=== PATIENT | male | born 1950 | race Caucasian/White ===

== ENCOUNTER 2023-05-26 14:25 | Emergency (ER) | payer MEDICARE, SELFPAY ==
[2023-05-26 14:28] VITALS: BP 160/89; PULSE 75; RESP 18; TEMP 36.3; O2SAT 100; BMI 27.7
--- NOTE | 2023-05-26 14:50 | EX.ED.GUMALE ---
HPI <SOIRIS Travis - Last Filed: 05/26/23 19:53> History of Present Illness Chief Complaint: Complaint Narrative Narrative: Patient presenting today due to dysuria that he has had since last Friday. He reports that him and his are currently traveling from [place] as they live there part of the year and here part of the year. He began having right-sided flank pain last Friday or Friday that resolved after 2 days. The dysuria has worsened over the week and he has been experiencing increased urinary frequency. He reports that 3 weeks ago he had a cystoscopy performed by his urologist in [place] due to urinary dribbling. He does have an enlarged prostate. He denies any fever, chills, abdominal pain, nausea, or vomiting. PFSH <OSIRIS Travis - Last Filed: 05/26/23 19:53> PFSH Home Medications phenazopyridine 200 mg tablet (Pyridium) 200 mg PO TID pain 6 doses #6 tabs 05/26/23 [Rx Last Taken Unknown] Allergy/AdvReac Type Severity Reaction Status Date / Time paregoric Allergy Swelling Verified 05/26/23 14:28 Social History Smoking Status: Never smoker ROS <OSIRIS Travis - Last Filed: 05/26/23 19:53> ROS ED Constitutional Constitutional ED: Denies chills or fever(s) Cardiovascular Cardiovascular: Denies chest pain Respiratory/Chest Respiratory/Chest: Denies cough or dyspnea Gastrointestinal Gastrointestinal: Denies abdominal pain, nausea or vomiting Genitourinary Genitourinary ED: Reports dysuria, urinary frequency and urinary urgency; Denies hematuria Musculoskeletal Musculoskeletal: Denies arthralgias or myalgias Integumentary Denies rash Neurologic Neurologic: Denies weakness EXAM <OSIRIS Travis - Last Filed: 05/26/23 19:53> Physical Exam Const Vital Signs: 05/26/23 14:28 05/26/23 17:23 Temperature 97.3 F L Temperature Source Temporal Pulse Rate 75 84 Respiratory Rate 18 Blood Pressure 160/89 H Blood Pressure Mean 112 Pulse Ox 100 96 Oxygen Delivery Method Room Air Positive well nourished, well developed and no apparent distress General Appearance ED: well developed HEENT Reports normocephalic and head/scalp atraumatic Mouth ED: Yes moist mucous membranes normal Eyes PERRL and EOMs intact bilaterally Neck full ROM and supple Chest Wall inspection of chest normal Resp normal respiratory effort and clear to auscultation bilaterally Cardio regular rate and regular rhythm GI soft to palpation, non-tender, non-distended and no masses Back/Spine normal ROM and normal to inspection Extremity normal to inspection and full ROM Neuro oriented x3, CN's II-XII intact bilaterally, moves all extremities, no focal motor deficits and no sensory deficits noted Sensorium / Orientation: awake and alert Psych mental status grossly normal and thought process normal Skin no rashes or lesions noted and no wounds <Dr. Meng Renner MD - Last Filed: 05/26/23 16:52> Physical Exam Const Vital Signs: 05/26/23 14:28 05/26/23 17:23 Temperature 97.3 F L Temperature Source Temporal Pulse Rate 75 84 Respiratory Rate 18 Blood Pressure 160/89 H Blood Pressure Mean 112 Pulse Ox 100 96 Oxygen Delivery Method Room Air MDM <OSIRIS Travis - Last Filed: 05/26/23 19:53> [facility] MDM Narrative Medical decision making narrative: Patient presenting with dysuria and increased urinary frequency that he has had for the past week. He reports that last Friday or Friday he began having right-sided flank pain that was intermittent and lasted about 2 days and resolved. He continued to have urinary symptoms without any hematuria. He does have a history of an enlarged prostate and is on medication for this but he is unsure what it is called. He follows with a urologist in [place] who performed a cystoscopy on him at the end of April. He is well-appearing and in no acute distress, he is nontoxic-appearing, vitals are unremarkable aside from elevated blood pressure. UA will be obtained to rule out UTI, he will be bladder scanned. UA is unremarkable, bladder scan only showed 71 cc. Olmedo catheter was placed and only a small amount of urine was drained, I do not think that he has urinary retention. He did mention that he has been experiencing bladder spasms. He will be given a referral for Dr. Owen and has been given a prescription for Pyridium. He will be discharged home in stable condition and is comfortable with plan. I have personally performed a face to face assessment of the patient and have reviewed the GRISEL Note. I performed a substantive portion of the visit including all aspects of the following. My ac findings include: History is 72-year-old male with symptoms of urinary frequency and dysuria with enlarged prostate. Recent cystoscopy done in [place]. Denies fever. He is able to urinate. Denies any hematuria. Exam is [well-appearing 70-year-old male vital signs stable afebrile. H EENT exam unremarkable. Neck nontender. Lungs clear. Heart regular rhythm. Abdomen soft nondistended normal bowel sounds. No peritoneal signs. Mild suprapubic tenderness. No mass. Right upper right lower quadrant unremarkable. Moving all 4 extremities. Nontender no edema. Neurologically is awake and alert with no focal motor deficits.] Medical Decision Making [72-year-old male with urinary frequency which may be from the large prostate. Bladder scan is only 71 cc which goes against urinary retention. UA is normal no signs of infection.] Other additions or changes: [None] Lab Data Attestation: I reviewed the patient's lab results. Labs: Laboratory Results - last 24 hr 05/26/23 14:57 Urine Color Yellow Urine Clarity Clear Urine pH 7.0 Ur Specific [place] 1.015 Urine Protein 15 H Urine Glucose (UA) Normal Urine Ketones Negative Urine Occult Blood Negative Urine Nitrite Negative Urine Bilirubin Negative Urine Urobilinogen 1 H Ur Leukocyte Esterase 25 H Urine RBC 0 SEEN Urine WBC 0-5 SEEN Ur Squamous Epith Cells 0 SEEN Urine Bacteria 0 SEEN Urine Mucus 0 SEEN <Dr. Meng Renner MD - Last Filed: 05/26/23 16:52> [facility] Narrative Medical decision making narrative: Patient presenting with dysuria and increased urinary frequency that he has had for the past week. He reports that last Friday or Friday he began having right-sided flank pain that was intermittent and lasted about 2 days and resolved. He continued to have urinary symptoms without any hematuria. He does have a history of an enlarged prostate and is on medication for this but he is unsure what it is called. He follows with a urologist in [place] who performed a cystoscopy on him at the end of April. He is well-appearing and in no acute distress, he is nontoxic-appearing, vitals are unremarkable aside from elevated blood pressure. UA will be obtained to rule out UTI, he will be bladder scanned. I have personally performed a face to face assessment of the patient and have reviewed the GRISEL Note. I performed a substantive portion of the visit including all aspects of the following. My ac findings include: History is 72-year-old male with symptoms of urinary frequency and dysuria with enlarged prostate. Recent cystoscopy done in [place]. Denies fever. He is able to urinate. Denies any hematuria. Exam is [well-appearing 70-year-old male vital signs stable afebrile. H EENT exam unremarkable. Neck nontender. Lungs clear. Heart regular rhythm. Abdomen soft nondistended normal bowel sounds. No peritoneal signs. Mild suprapubic tenderness. No mass. Right upper right lower quadrant unremarkable. Moving all 4 extremities. Nontender no edema. Neurologically is awake and alert with no focal motor deficits.] Medical Decision Making [72-year-old male with urinary frequency which may be from the large prostate. Bladder scan is only 71 cc which goes against urinary retention. UA is normal no signs of infection.] Other additions or changes: [None] Lab Data Labs: Laboratory Results - last 24 hr 05/26/23 14:57 Urine Color Yellow Urine Clarity Clear Urine pH 7.0 Ur Specific [place] 1.015 Urine Protein 15 H Urine Glucose (UA) Normal Urine Ketones Negative Urine Occult Blood Negative Urine Nitrite Negative Urine Bilirubin Negative Urine Urobilinogen 1 H Ur Leukocyte Esterase 25 H Urine RBC 0 SEEN Urine WBC 0-5 SEEN Ur Squamous Epith Cells 0 SEEN Urine Bacteria 0 SEEN Urine Mucus 0 SEEN Discharge Plan Triage Chief Complaint: Complaint ED Midlevel Provider: Fabiana Hampton ED Provider: Meng Renner Dx/Rx/DC Orders Clinical Impression: Urinary frequency, Dysuria, Bladder spasms Instructions: ED Dysuria, Uncertain Cause (Adult) Prescriptions: New phenazopyridine [Pyridium] 200 mg tablet 200 mg PO TID Qty: 6 0RF Primary Care Provider: Care Physician,No Primary Referrals: Nghia Owen MD [Med Staff - Active Staff] - 3-5 Days Care Physician,No Primary [Primary Care Provider] - Activity Restrictions/Additional Instructions: Please follow-up with the urologist and return for any worsening of your symptoms. Disposition Disposition: Home, Self Care Discharge Date/Time: 05/26/23 17:29
[2023-05-26 15:02] LABS: Bacteria 0 SEEN /hpf (None Seen); Mucous, Urine 0 SEEN /hpf (<or=2+); Red Blood Cells-Urine 0 SEEN /hpf (0-5); Squamous Epithelial Cells - UA 0 SEEN /hpf (0-5)
[2023-05-26 15:11] LABS: Color, Urine Yellow (Yellow); Glucose, Dipstick Normal (Normal); Ketone-Dipstick Negative (Negative); Leukocyte Esterase-Dipstick 25 /ul (Negative); Nitrite-Dipstick Negative (Negative); Occult Blood-Urine Negative /ul (Negative); Protein-Dipstick 15 mg/dl (Negative); Specific Gravity, Urine 1.015 (1.002-1.030); Urine Bilirubin Dipstick Negative (Negative); Urine Clarity Clear (Clear); Urine Urobilinogen 1 mg/dl (Normal)
[2023-05-26 15:17] LABS: White Blood Cells 0-5 SEEN /hpf (0-5)
[2023-05-26 17:23] VITALS: PULSE 84; O2SAT 96
== END 2023-05-26 17:29 | disposition home or self-care (01) ==
PROVIDERS: Physician Assistant; Emergency Provider Emergency Medicine; Visit Provider Emergency Medicine
DX: R30.0 Dysuria (principal); R35.0 Frequency of micturition; N32.89 Other specified disorders of bladder
CPT/HCPCS: 51702; 81001; 99282; A4216

== ENCOUNTER → 2023-05-27 | Outpatient (CLI) | payer MEDICARE, OTHER, SELFPAY | END | disposition home or self-care (01) | PROVIDERS: Referring Provider Urology; Visit Provider Urology | DX: R30.0 Dysuria (principal) | CPT/HCPCS: 87086 ==

== ENCOUNTER → 2023-10-28 | Outpatient (CLI) | payer MEDICARE, OTHER, SELFPAY ==
--- OUTSIDE RECORDS SUMMARY | 2023-10-28 08:21 | XMS RPT_ITS | CCD ---
Author Name Unknown Address [address] [place] [address] Organization [facility] Care Team Providers Care Supervisor Partial Denture Department Name Role Phone Lynne Crockett PA-C Unavailable [phone] Ga Millan Primary Care Provider Lor Hensley (Retired) Primary Care Provider Lor Hensley (Retired) Primary Care Provider [phone] Mindy Henriquez Unavailable Galindo Ott DO Primary Care Provider GALINDO OTT Primary Care Unavailable GALINDO OTT Attending Unavailable GALINDO OTT Primary Care Unavailable NYDIA TORRES Attending Unavailable GA MILLAN Primary Care Unavailable Allergies Allergy Classification Reported Allergen(s) Allergy Type Date of Onset Reaction(s) Facility (1 source) PERIGORIC drug allergy 04-23-2019 [facility] Work Phone: (1 source) Opium; Translations: [opium] Drug Allergy [facility] Medications Current Medications Medication Drug Class(es) Dates Sig (Normalized) Sig (Original) acetaminophen 325 mg oral tablet (1 source) Start: 08-04-2020 acetaminophen (TYLENOL) tablet 650 mg amLODIPine 5 mg / benazepril hydrochloride 10 mg oral capsule (4 sources) Dihydropyridine Calcium Channel Michi, Angiotensin Converting Enzyme Inhibitor Start: 04-20-2018 take 1 capsule by mouth once daily 1 capsule, Oral, DAILY, First dose on Fri08/04/20 at 1045 aspirin 81 mg delayed release oral tablet (7 sources) Platelet Aggregation Inhibitor, Nonsteroidal Anti-inflammatory Drug Start: 05-30-2023 aspirin 81 mg oral delayed release tablet Dose : 81 mg = 1 tab(s), Oral, Daily, 0 Refill(s) Start Date: 05/30/23 Status: Ordered Completed/Discontinued Medications Medication Drug Class(es) Dates Sig (Normalized) Sig (Original) linseed oil 1000 mg oral capsule (4 sources) Start: 04-23-2019 End: 10-06-2023 Flaxseed, Linseed, (Flax Seed Oil) 1000 MG capsule Linseed Oil FLAX SEED OIL 1000 MG CAPS Take one capsule once daily FLAXSEED (LINSEED) [id number] Maria De Jesus Cuevaers 04-23-2019 [facility] [phone] 04/23/2019 10/06/2023 Discontinued (Patient refused) Problems Active Problems Problem Classification Problem Date Documented Da te Episodic/Chronic Allergic reactions (3 sources) Allergy to bee venom; Translations: [Bee allergy status] Onset: 10-06-2023 10-06-2023 Episodic Coronary atherosclerosis and other heart disease (8 sources) Coronary atherosclerosis; Translations: [Coronary arteriosclerosis] Onset: 08-04-2020 08-04-2020 Chronic Coronary atherosclerosis and other heart disease (20 sources) History of placement of stent for coronary artery disease; Translations: [S/P coronary artery stent placement] Episodic Disorders of lipid metabolism (4 sources) Mixed hyperlipidemia; Translations: [Mixed hyperlipidemia] Onset: 08-15-2020 10-06-2023 Chronic Essential hypertension (6 sources) Essential hypertension; Translations: [Essential (primary) hypertension] Onset: 02-16-2018 02-16-2018 Chronic Osteoarthritis (2 sources) Osteoarthritis of right knee joint; Translations: [Unilateral primary osteoarthritis, right knee] Onset: 10-06-2023 10-06-2023 Chronic Other and unspecified benign neoplasm (4 sources) History of polyp of colon; Translations: [Personal history of colonic polyps] Onset: 02-16-2018 02-16-2018 Episodic Other and unspecified benign neoplasm (2 sources) Personal history of colonic polyps; Translations: [Personal history of colonic polyps] Onset: 06-20-2022 Episodic Other ear and sense organ disorders (2 sources) Bilateral hearing loss; Translations: [Unspecified hearing loss, bilateral] Onset: 10-06-2023 10-06-2023 Chronic Other ear and sense organ disorders (2 sources) Unspecified hearing loss, bilateral; Translations: [Unspecified hearing loss, bilateral] Onset: 10-06-2023 Chronic Other non-epithelial cancer of skin (1 source) Basal cell carcinoma of skin; Translations: [Basal cell carcinoma of skin, unspecified] Onset: 10-06-2023 10-06-2023 Episodic Other screening for suspected conditions (not mental disorders or infectious disease) (6 sources) Raised prostate specific antigen; Translations: [Elevated prostate specific antigen [PSA]] Onset: 02-16-2018 02-16-2018 Episodic Spondylosis; intervertebral disc disorders; other back problems (1 source) Degeneration of cervical intervertebral disc; Translations: [Other cervical disc degeneration, unspecified cervical region] Onset: 04-27-2019 04-27-2019 Chronic Past or Other Problems Problem Classification Problem Date Documented Da te Episodic/Chronic Immunizations and screening for infectious disease (2 sources) Encounter for immunization; Translations: [Encounter for immunization] Onset: 06-19-2023 Episodic Nutritional deficiencies (2 sources) Deficiency of other specified B group vitamins; Translations: [Deficiency of other specified B group vitamins] Onset: 06-19-2023 Episodic Other connective tissue disease (1 source) Bicipital tendinitis, left shoulder; Translations: [Bicipital tendinitis, left shoulder] Onset: 04-27-2019 04-27-2019 Episodic Other connective tissue disease (1 source) Pain in right hand; Translations: [Pain in right hand] Onset: 10-10-2021 Resolved: 10-06-2023 10-06-2023 Episodic Other connective tissue disease (2 sources) Pain in finger of left hand; Translations: [Pain in left finger(s)] Onset: 10-10-2021 Resolved: 10-06-2023 10-06-2023 Episodic Other connective tissue disease (2 sources) Triggering of digit; Translations: [Trigger finger, right ring finger] Onset: 10-10-2021 Resolved: 10-06-2023 10-06-2023 Episodic Other connective tissue disease (1 source) Pain in finger of right hand; Translations: [Pain in right finger(s)] Onset: 08-14-2022 Resolved: 10-06-2023 10-06-2023 Episodic Residual codes; unclassified (3 sources) Family history of cancer of colon; Translations: [Family history of malignant neoplasm of digestive organs] Onset: 02-16-2018 Resolved: 10-06-2023 02-16-2018 Episodic Unclassified (1 source) Problem Results Test Name Value Interpretation Reference Range Facil ity Vital Signs Date Time Vital Sign Value Performing Clinician Facility 10-06-2023 14:39-0500 Body height 170.2 cm Galindo Ott DO [facility] 10-06-2023 14:39-0500 Body mass index (BMI) [Ratio] 28.66 kg/m2 Galindo Ott DO [facility] 10-06-2023 14:39-0500 Body temperature 98.29 [degF] Galindo Ott DO [facility] 10-06-2023 14:39-0500 Body weight 83.01 kg Galindo Ott DO [facility] 10-06-2023 14:39-0500 Diastolic blood pressure 70 mm[Hg] Galindo Ott DO Work Phone: [employer] 10-06-2023 14:39-0500 Heart rate 76 /min Galindo Ott DO [facility] 10-06-2023 14:39-0500 SaO2% (BldA) [Mass fraction] 97 % Galindo Ott DO [facility] 10-06-2023 14:39-0500 Systolic blood pressure 132 mm[Hg] Galindo Ott DO Work Phone: [facility] [employer] 05-31-2023 08:23-0400 Heart rate 80 /min DR ISIDORO SHETH MD [facility] 05-31-2023 06:45-0400 Body temperature 97.52 [degF] DR ISIDORO SHETH MD [facility] 05-31-2023 06:45-0400 Diastolic Blood Pressure Non-Invasive [address] ISIDORO SHETH MD [facility] 05-31-2023 06:45-0400 Heart rate 66 /min DR ISIDORO SHETH MD [facility] 05-31-2023 06:45-0400 Reason For Taking VItal Signs DR ISIDORO SHETH MD [facility] 05-31-2023 06:45-0400 Respiratory rate 16 /min DR ISIDORO SHETH MD [facility] 05-31-2023 06:45-0400 Systolic Blood Pressure Non-Invasive [address] ISIDORO SHETH MD [facility] 05-31-2023 03:25-0400 Body temperature 97.52 [degF] DR ISIDORO SHETH MD [facility] 05-31-2023 03:25-0400 Diastolic Blood Pressure Non-Invasive [address] ISIDORO SHETH MD [facility] 05-31-2023 03:25-0400 Heart rate 56 /min DR ISIDORO SHETH MD [facility] 05-31-2023 03:25-0400 Reason For Taking VItal Signs DR ISIDORO SHETH MD [facility] 05-31-2023 03:25-0400 Respiratory rate 16 /min DR ISIDORO SHETH MD [facility] 05-31-2023 03:25-0400 Systolic Blood Pressure Non-Invasive [address] ISIDORO SHETH MD [facility] 05-30-2023 22:43-0400 Body temperature 98.42 [degF] DR ISIDORO SHETH MD [facility] 05-30-2023 22:43-0400 Diastolic Blood Pressure Non-Invasive [address] ISIDORO SHETH MD [facility] 05-30-2023 22:43-0400 Heart rate 61 /min DR ISIDORO SHETH MD [facility] 05-30-2023 22:43-0400 Reason For Taking VItal Signs DR ISIDORO SHETH MD [facility] 05-30-2023 22:43-0400 Respiratory rate 16 /min DR ISIDORO SHETH MD [facility] 05-30-2023 22:43-0400 Systolic Blood Pressure Non-Invasive [address] ISIDORO SHETH MD [facility] 05-30-2023 20:14-0400 Body height 172.[address] ISIDORO SHETH MD [facility] 05-30-2023 20:14-0400 Body weight 77.[address] ISIDORO SHETH MD [facility] 05-30-2023 20:14-0400 Body weight 25.88 kg/m2 DR ISIDORO SHETH MD [facility] 05-30-2023 16:20-0400 Body temperature 97.34 [degF] DR ISIDORO SHETH MD [facility] 05-30-2023 16:15-0400 Respiratory Rate - Anes 15 br/min DR ISIDORO SHETH MD [facility] 05-30-2023 16:10-0400 Respiratory Rate - Anes 14 br/min DR ISIDORO SHETH MD [facility] 05-30-2023 16:05-0400 Respiratory Rate - Anes 15 br/min DR ISIDORO SHETH MD [facility] 05-30-2023 12:53-0400 Body height 172.[address] ISIDORO SHETH MD [facility] 05-30-2023 12:53-0400 Body temperature 98.06 [degF] DR ISIDORO SHETH MD [facility] 05-30-2023 12:53-0400 Body weight 77.[address] ISIDORO SHETH MD [facility] 05-30-2023 12:53-0400 Heart rate 69 /min DR ISIDORO SHETH MD [facility] 10-31-2020 06:42-0500 Body weight 89.36 kg Card 2 [facility] 10-31-2020 06:42-0500 BP Diastolic 70 mm[Hg] Card 2 [facility] 10-31-2020 06:42-0500 BP Systolic 112 mm[Hg] Card 2 [facility] 10-31-2020 06:42-0500 Height 172.7 cm Card 2 [facility] 10-31-2020 06:42-0500 Pulse (Heart Rate) 70 /min Card 2 [facility] 10-03-2020 06:37-0500 Body weight 93.17 kg Card 2 [facility] 10-03-2020 06:37-0500 BP Diastolic 78 mm[Hg] Card 2 [facility] 10-03-2020 06:37-0500 BP Systolic 128 mm[Hg] Card 2 [facility] 10-03-2020 06:37-0500 Pulse (Heart Rate) 72 /min Card 2 [facility] 09-04-2020 08:13-0500 Body weight 96.62 kg [employer] [facility] 09-04-2020 08:13-0500 BP Diastolic 70 mm[Hg] [employer] [facility] 09-04-2020 08:13-0500 BP Systolic 122 mm[Hg] [employer] [facility] 09-04-2020 08:13-0500 Height 172.7 cm [employer] [facility] 09-04-2020 08:13-0500 Pulse (Heart Rate) 70 /min [employer] [facility] 09-04-2020 08:13-0500 Pulse Oximetry 96 % [employer] [facility] 08-04-2020 15:30-0500 BP Diastolic 98 mm[Hg] Nydia Torres [facility], [place] 08-04-2020 15:30-0500 BP Systolic 130 mm[Hg] Nydia Torres [facility] 08-04-2020 15:30-0500 Pulse (Heart Rate) 88 /min Nydia Kenney [facility] 08-04-2020 15:00-0500 Pulse Oximetry 96 % Nydia Kenney [facility], [place] 08-04-2020 15:00-0500 Respiratory Rate 16 /min [facility] [place] 08-04-2020 10:30-0500 Body Temperature 97.7 [degF] Nydia oTrres [facility], [place] 08-04-2020 08:28-0500 BMI (Body Mass Index) 32.25 kg/m2 Nydia Torres [facility] 08-04-2020 08:28-0500 Body weight 96.2 kg [facility] [place] 08-04-2020 08:28-0500 Height 172.7 cm Nydia Torres [place], [place] NEGATED: Highlighted [id number] 08:02-0400 BMI (Body Mass Index) 32.05 kg/m2 Chapin Dawkins OTC [facility] Work Phone: NEGATED: Highlighted [id number] 08:02-0400 Body weight 95.26 kg Chapin Dawkins OT-C [facility] Work Phone: NEGATED: Highlighted [id number] 08:02-0400 Body weight 95 kg Chapin Juancho GONZALEZC [facility] Work Phone: NEGATED: Highlighted [id number] 08:02-0400 BP Diastolic 81 mm[Hg] Chapin Juancho OT-[facility] Work Phone: NEGATED: Highlighted [id number] 08:02-0400 BP Systolic 129 mm[Hg] Chapin Juancho OT-C [facility] Work Phone: NEGATED: Highlighted [id number] 08:040 Height 172.72 cm Chapin Juancho OT-C [facility] Work Phone: NEGATED: Highlighted [id number] 08:040 Height 173 cm Chapin Juancho OT-C [facility] Work Phone: NEGATED: Highlighted [id number] Pulse (Heart Rate) 67 /min Chapin Juancho OT-C [facility] Work Phone: Encounters Encounter Date Encounter Type Care Provider Facility Start: 10-06-2023 End: 10-06-2023 ambulatory [facility] Start: 10-06-2023 End: 10-06-2023 Office outpatient visit 25 minutes Galindo Maria Tru DO Work Phone: [facility] Procedures Date Procedure Procedure Detail Performing Clinician Start: 07-16-2021 Lipid 1996 panel - S leanna or Plasma Galindo Tru FISHMAN Work Phone: Start: 09-04-2020 Adult depression scr eening assessment Card 2 Start: 08-09-2020 Basic metabolic pane l calcium total Peggy B Puliafico Work Phone: Start: 08-09-2020 Blood count complete automated Peggy B Puliafico Work Phone: Start: 08-04-2020 Ecg routine ecg w/le ast 12 lds w/i&r Anat Baker Work Phone: Start: 08-04-2020 CARDIAC CATH NURSING LOG 3m Scanning Start: 08-04-2020 Basic metabolic pane l calcium total Nikki Williamson Work Phone: Start: 08-04-2020 Blood count complete automated Nikki Williamson Work Phone: Start: 08-04-2020 Catheterization and angiography procedure details panel Nydia Wallerdarenmateus Work Phone: Start: 10-05-2019 Colonoscopy Galindo rodriguez DO Work Phone: Start: 04-27-2019 End: 04-27-2019 Arthrocentesis aspir&/inj major jt/bursa w/o us Lynne Crockett PA-C Work Phone: Start: 04-27-2019 End: 04-27-2019 Blood pressure within normal parameters - no follow-up required Lynne Crockett PA-C Work Phone: Start: 04-27-2019 End: 04-27-2019 BMI documented as above normal parameters - follow-up documented Lynne Crockett PA-C Work Phone: Start: 04-27-2019 End: 04-27-2019 Documentation of current medications Lynne Crockett PA-C Work Phone: Start: 04-27-2019 End: 04-27-2019 Injection - triamcinolone acetonide 10 mg Lynne Crockett PA-C Work Phone: Start: 04-27-2019 End: 04-27-2019 Pain assessment documented as positive - follow-up documented Lynne Crockett PA-C Work Phone: Start: 04-27-2019 End: 04-27-2019 Tobacco non-user Lynne Washington Work Phone: Arthroplasty of knee DR ISIDORO SHETH MD Plan of Treatment Date Care Activity Detail Author Start: 07-06-2032 DTaP/Tdap/Td Vaccines (2 - Td or Tdap) DTaP/Tdap/Td Vaccines (2 - Td or Tdap) [facility] Start: 10-05-2029 Screening for malignant neoplasm of colon [facility] Start: 07-16-2026 Lipid panel Lipid Panel [facility] Start: 05-18-2024 End: 05-18-2024 Patient encounter procedure 05/18/2024 3:30 PM EDT Office Visit [facility] [address] [place] [address] Galindo Ott, DO [address] [place] [address] [facility] Start: 11-18-2023 End: 11-18-2023 Patient encounter procedure 11/18/2023 1:45 PM EDT Office Visit [facility] [address] [place] [address] Nydia Torres MD [address] [place] [address] [id number] [facility] Start: 10-06-2023 End: 10-06-2024 CBC W Auto Differential panel - Blood CBC auto differential Lab Routine Mixed hyperlipidemia Expected: 10/06/2023 (Approximate), Expires: 10/06/2024 [facility] Work Phone: Immunizations Immunization Date Immunization Notes Care Provider Xena szymanski 06-19-2023 Influenza, Seasonal, Quadrivalent, Adjuvanted Galindo Richlla DO Work Phone: [facility] 07-06-2022 tetanus toxoid, redu mary diphtheria toxoid, and acellular pertussis vaccine, adsorbed Galindo Hilarioaurya DO Work Phone: [facility] 07-08-2021 Influenza, High-dose Seasonal, Quadrivalent, Preservative Free Galindo Hilariolla DO Work Phone: [facility] 09-05-2020 pneumococcal polysac charide vaccine, 23 valent Galindo Diaza DO Work Phone: [facility] 06-20-2020 Influenza, injectabl e, quadrivalent, preservative free Galindo Hilariolla DO Work Phone: [facility] 07-19-2019 Influenza, injectabl e, quadrivalent, preservative free Galindo Ott DO Work Phone: [facility] [employer] Payers Date Payer Category Payer Unknown [employer] [place] MEDICARE SUPPLEMENT [id number] 2022-Present [address] [place] [address] Supplement [id number] 2020 Unknown MMO MMO MEDICARE SUPPLEMENT [id number] 2020-Present Indemnity [id number] 2019 Unknown [id number] 2015 Medicare [id number] 2015 Medicare MEDICARE MEDICAR E A AND B [id number] 2015-Present [place] Medicare [id number] 2015 Medicare MEDICARE MEDICAR E PART A AND B [id number] 2015-Present [address] [place] [address] Medicare [id number] Social History Date Type Detail Facility Start: 04-27-2019 End: 04-27-2019 Assertion Unknown if ever smoked [facility] Work Phone: Start: 08-02-2020 End: 11-13-2022 Tobacco smoking status NHIS Former smoker [facility] [employer] End: 02-16-1983 History of tobacco use Current smoker [place], [place] End: 02-16-1983 History of tobacco use Cigarette Smoker [place] Start: 08-02-2020 End: 11-13-2022 Cigarettes smoked current (pack per day) - Reported [place] Start: 08-02-2020 End: 11-13-2022 Tobacco use and exposure Never used [place] Start: 08-02-2020 End: 10-06-2023 Alcohol intake Current drinker of alcohol (finding) [place] Start: 02-10-2019 History SDOH Alcohol Frequency 5 [place] Start: 02-10-2019 History SDOH Alcohol Std Drinks 1 [place] Start: 02-10-2019 History SDOH Social Connections Phone 2 [place] Start: 02-10-2019 History SDOH Social Connections Get Together 3 [place] Start: 02-10-2019 History SDOH Physica l Activity DPW 4 [place] Start: 02-16-2018 Alcohol Comment occasionally [facility] Seth [place], [place] Start: 1950 Sex Assigned At Not on file M [place], [place] Exposure to SARS-CoV-2 (event) Not sure [facility] Start: 05-30-2023 Tobacco smoking status Never smoked tobacco (finding) [facility] Start: 1950 Sex Assigned At Male A [facility] Start: 11-13-2022 Tobacco use panel [facility] Start: 06-27-2022 Gender identity Identifies as male gender (finding) [facility] NEGATED: Highlighted rowStart: 04-27-2019 End: 04-27-2019 Employment detail Employment detail [facility] Work Phone: Goals Date Patient Goal Desired Activity /State Functional Status Date Assessment Result Facility 05-31-2023 Functional Status Repositions self [facility] 05-31-2023 Functional Status Sequential Com pression Device bilateral knee high applied/on [facility] 05-31-2023 Functional Status [facility] 05-30-2023 Functional Status [facility] 05-30-2023 Functional Status Sensory Deficits None A [facility] 05-30-2023 Functional Status 100 [facility] 05-30-2023 Functional Status Awake, Resting [facility] 05-30-2023 [facility] Status Date Assessment Result Facility 05-31-2023 Mental Status Orientation Oriented x 4 [facility] 05-30-2023 [facility] 05-30-2023 Mental Status [facility] History of Present illness Narrative 10-06-2023 Galindo Ott, DO - 10/06/2023 2:30 PM EST Note Date & Type Note Facility 10-06-2023 History of Presen t illness Narrative Images from the original note were not included. [facility] [address] [place] [address] [address] [facility] [address] Visit type: Established Patient Reason for Visit: Follow-up (New to provider, med check) Assessment / Plan: Yunior was seen today for follow-up. 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) Comments: Stable, check labs soon continue Crestor and aspirin Mixed hyperlipidemia - CBC auto differential; Future - Comprehensive metabolic panel; Future - Lipid panel; Future - CBC auto differential - Comprehensive metabolic panel - Lipid panel Elevated PSA, less than 10 ng/ml Comments: Stable, check records History of colon polyps Comments: Stable, check records Bilateral hearing loss, unspecified hearing loss type Primary osteoarthritis of right knee Comments: Stable, Tylenol as needed 35 Minutes spent on reviewing pertinent history, patient interview, physical exam, discussion of diagnosis and treatment and work-up options. Subjective: Patient ID: Yunior Rushing is a 73 y.o. male. HPI non-smoker with history of coronary disease, hyperlipidemia and hypertension and colonic polyps presents for first-time evaluation by myself. Past medical, past surgical, family and social history reviewed and chart updated properly. Patient does spend extensive time in [place] where he is a second home. Apparently last year he had a colonoscopy that was unremarkable and no future studies are necessary. Also this past year he underwent a TURP for elevated PSA by [facility] urologist. Unsure of exact details but is back to routine follow-up exams. Overall he is felt well and has no new complaints Review of Systems no recent earache sore throat or cough. Non-smoker. No exertional chest pain or dyspnea. No use of nitro. Will see cardiology once a year. No history of CO or heart failure. No dysphagia or abdominal pain. No melena or blood. Bowels are regular. No constipation diarrhea. No change in nocturia or dysuria. No recent hematuria. History of bee sting allergies as well. Rare arthralgia of his knees and low back. History of lumbar fusion and right knee arthroplasty. No Known Allergies Current Outpatient Medications on File Prior to Visit Medication Sig Dispense Refill aspirin 81 MG EC tablet Take 81 mg by mouth in the morning. benazepril (Lotensin) 10 MG tablet 20 mg. EPINEPHrine (AUVI-Q) 0.15 mg/0.15 mL IJ solution auto-injector injection Inject 0.15 mL (0.15 mg) into the shoulder, thigh, or buttocks if needed for anaphylaxis. 2 each 0 famotidine (Pepcid) 20 MG tablet Take 20 mg by mouth in the morning and 20 mg before bedtime. metoprolol succinate XL (Toprol-XL) 50 MG 24 hr tablet Take 1 tablet (50 mg) by mouth daily. 90 tablet 3 nitroglycerin (Nitrostat) 0.4 MG SL tablet up to max of 3 total doses. If no relief after 1 dose, call 911. rosuvastatin (Crestor) 20 MG tablet Take 1 tablet (20 mg) by mouth Nightly. 90 tablet 3 tamsulosin (Flomax) 0.4 MG 24 hr capsule Take 1 capsule by mouth in the morning. [DISCONTINUED] Flaxseed, Linseed, (Flax Seed Oil) 1000 MG capsule Linseed Oil FLAX SEED OIL 1000 MG CAPS Take one capsule once daily FLAXSEED (LINSEED) [phone] Maria De Jesus April 04-23-2019 [facility] ([id number]) No current facility-administered medications on file prior to visit. 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) Essential hypertension History of colon polyps Elevated PSA, less than 10 ng/ml Basal cell carcinoma Osteoarthritis of right knee Bilateral hearing loss Bee sting allergy Social History Tobacco Use Smoking status: Former Packs/day: 1 Types: Cigarettes Quit date: 02/16/1983 Years since quittin.6 Smokeless tobacco: Never Substance Use Topics Alcohol use: Yes Alcohol/week: 1.0 standard drink of alcohol Past Surgical History: Procedure Laterality Date BUNIONECTOMY Left [place]ONOSCOPY 09/2019 [place] COLONOSCOPY 2017October 2017 COLONOSCOPY 2022 Apparently negative, no need for follow-up in future CORONARY STENT PLACEMENT Left 07/2020 Stent to Mid LAD LUMBAR FUSION 1981 PROSTATE BIOPSY 2017 three total- Dr. Sheth RHINOPLASTY 2011 TOTAL KNEE ARTHROPLASTY Right 2015 TRANSURETHRAL RESECTION OF PROSTATE 2022 Cher Sheth Family History Problem Relation Name Age of Onset High Blood Pressure Mother Stroke Mother 78 age 70 Cerebral aneurysm Father Coronary artery disease Father Cancer Father ? primary, mets to brain- late 70s Prostate cancer Brother Lai vs rectal CA No Known Problems Brother No Known Problems Brother Objective: BP 132/70 Pulse 76 Temp 36.8 C (98.3 F) (Temporal) Ht 5' 7 (1.702 m) Wt 183 lb (83 kg) SpO2 97% BMI 28.66 kg/m Physical Exam The physical exam is generally normal. Patient appears well, alert and oriented x 3, pleasant, cooperative. Vitals are as noted. No carotid bruits. Neck supple, no abnormal adenopathy, thyroid lesions or masses. Ears, nose and throat are normal without acute findings. Lungs are clear to auscultation. Heart is regular, without murmurs, gallops or ectopy. Abdomen is soft, non tender, without masses, hepatosplenomegaly, or bruits. Normal BS evident. Extremities are normal without edema. Peripheral pulses are fair. No worrisome skin lesions. Screening neurological exam is normal without focal deficits. documented in this encounter [facility] Discharge instructions 05-31-2023 Note Date & Type Note Facility 05-31-2023 Hospital Discharg e instructions Patient Education 05/31/2023 10:02:19 Transurethral Resection of the Prostate, Care After Transurethral Resection of the Prostate, Care After This sheet gives you information about how to care for yourself after your procedure. Your health care provider may also give you more specific instructions. If you have problems or questions, contact your health care provider. What can I expect after the procedure? After the procedure, it is common to have: Mild pain in your lower abdomen. Soreness or mild discomfort in your penis from having the catheter inserted during the procedure. A feeling of urgency when you need to urinate. A small amount of blood in your urine. You may notice some small blood clots in your urine. These are normal. Follow these instructions at home: Medicines Take djzt-yol-qzvkexu and prescription medicines only as told by your health care provider. If you were prescribed an antibiotic medicine, take it as told by your health care provider. Do not stop taking the antibiotic even if you start to feel better. Ask your health care provider if the medicine prescribed to you: ?Requires you to avoid driving or using heavy machinery. ?Can cause constipation. You may need to take actions to prevent or treat constipation, such as: ?Take yadx-kct-weyzkvr or prescription medicines. ?Eat foods that are high in fiber, such as fresh fruits and vegetables, whole grains, and beans. ?Limit foods that are high in fat and processed sugars, such as fried or sweet foods. Do not drive for 24 hours if you were given a sedative during your procedure. Activity Return to your normal activities as told by your health care provider. Ask your health care provider what activities are safe for you. Do not lift anything that is heavier than 10 lb (4.5 kg), or the limit that you are told, for 3 weeks after the procedure or until your health care provider says that it is safe. Avoid intense physical activity for as long as told by your health care provider. Avoid sitting for a long time without moving. Get up and move around one or more times every few hours. This helps to prevent blood clots. You may increase your physical activity gradually as you start to feel better. Lifestyle Do not drink alcohol for as long as told by your health care provider. This is especially important if you are taking prescription pain medicines. Do not engage in sexual activity until your health care provider says that you can do this. General instructions Do not take baths, swim, or use a hot tub until your health care provider approves. Drink enough fluid to keep your urine pale yellow. Urinate as soon as you feel the need to. Do not try to hold your urine for long periods of time. If your health care provider approves, you may take a stool softener for 2 3 weeks to prevent you from straining to have a bowel movement. Wear compression stockings as told by your health care provider. These stockings help to prevent blood clots and reduce swelling in your legs. Keep all follow-up visits as told by your health care provider. This is important. Contact a health care provider if you have: Difficulty urinating. A fever. Pain that gets worse or does not improve with medicine. Blood in your urine that does not go away after 1 week of resting and drinking more fluids. Swelling in your penis or testicles. Get help right away if: You are unable to urinate. You are having more blood clots in your urine instead of fewer. You have: ?Large blood clots. ?A lot of blood in your urine. ?Pain in your back or lower abdomen. ?Pain or swelling in your legs. ?Chills and you are shaking. ?Difficulty breathing or shortness of breath. Summary After the procedure, it is common to have a small amount of blood in your urine. Avoid heavy lifting and intense physical activity for as long as told by your health care provider. Urinate as soon as you feel the need to. Do not try to hold your urine for long periods of time. Keep all follow-up visits as told by your health care provider. This is important. This information is not intended to replace advice given to you by your health care provider. Make sure you discuss any questions you have with your health care provider. Document Released: 08/25/2006 Document Revised: 12/15/2019 Document Reviewed: 05/26/2019 [employer] Patient Education 2020 [employer]. Follow Up Care 05/29/2023 15:19:24 With:ISIDORO SHETH MD, [facility] Address: [address] [place] [phone] When: Unknown [facility] Nurse Discharge summary 05-31-2023 Note Date & Type Note Facility 05-31-2023 Nurse Discharge summary discharge instructions reviewed with pt and , questions answered and verbalized understanding pt discharged via to home with family [facility] Clinical Note 05-31-2023 Note Date & Type Note Facility 05-31-2023 Note Discharge Instructions Thank you for allowing [facility] to assist you with your healthcare needs. The following is important discharge information regarding your hospital visit. What to do next Follow Up Appointments Follow Up with ISIDORO SHETH MD, [facility] When Where: [address] [place] [phone] The Following Activity and Diet Have Been Ordered for You No qualifying data available. No qualifying data available. The Following Equipment Has Been Ordered for You No qualifying data available. The Following Treatments Have Been Ordered for You Discharge Labs No qualifying data available. Discharge Radiology No qualifying data available. Other Therapies No qualifying data available. Post Acute Orders No qualifying data available. Someone Will Contact You Regarding These Home Health Referrals No home referrals have been ordered for you. No one will call you. Allergies opium (Swelling) Medications Please ask your primary doctor or pharmacist before taking any other medication not listed, including over the counter drugs, herbal medications, vitamins and or supplements as they may interact with your home medications. What How Much When Instructions Last Dose New atorvastatin New ciprofloxacin (Cipro 500 mg oral tablet) 1 tab(s) by mouth Every 12 hours Duration: 7 Days Pickup at [facility]/pharmacy #[id number] Changed aspirin (aspirin 81 mg oral delayed release tablet) 1 tab(s) by mouth Every day 9a Changed aspirin (aspirin 81 mg oral delayed release tablet) 1 tab(s) by mouth Every day Changed benazepril (benazepril 10 mg oral tablet) 1 tab(s) by mouth Every day 9a Changed benazepril (benazepril 10 mg oral tablet) 1 tab(s) by mouth Every day Changed famotidine (famotidine 20 mg oral tablet) 1 tab(s) by mouth Two (2) times a day 9a Changed famotidine (famotidine 20 mg oral tablet) 1 tab(s) by mouth Two (2) times a day Changed metoprolol (metoprolol succinate 50 mg oral TABLET extended release) 1 tab(s) by mouth Once a day 9a Changed metoprolol (metoprolol succinate 50 mg oral TABLET extended release) 1 tab(s) by mouth Once a day Changed tamsulosin (tamsulosin 0.4 mg oral capsule) TAKE 1 CAPSULE BY MOUTH EVERY DAY FOR BPH 9a Unchanged rosuvastatin (rosuvastatin 20 mg oral tablet) 1 tab(s) by mouth Every day Pharmacy Information [facility]/pharmacy #[id number]: [address], [place] [phone] What How Much When Comments Stop Taking dutasteride (dutasteride 0.5 mg oral capsule) 1 cap by mouth Every day Please take this list to your next doctor s visit. Bring all medications you take, including over the counter medications, herbals and other supplements with you to your doctor s visit. Patients and families are reminded to discard old lists and to update any records with all medication providers or retail pharmacies. Education Materials Transurethral Resection of the Prostate, Care After This sheet gives you information about how to care for yourself after your procedure. Your health care provider may also give you more specific instructions. If you have problems or questions, contact your health care provider. What can I expect after the procedure? After the procedure, it is common to have: Mild pain in your lower abdomen. Soreness or mild discomfort in your penis from having the catheter inserted during the procedure. A feeling of urgency when you need to urinate. A small amount of blood in your urine. You may notice some small blood clots in your urine. These are normal. Follow these instructions at home: Medicines Take ysbv-krt-hffpbqj and prescription medicines only as told by your health care provider. If you were prescribed an antibiotic medicine, take it as told by your health care provider. Do not stop taking the antibiotic even if you start to feel better. Ask your health care provider if the medicine prescribed to you: ? Requires you to avoid driving or using heavy machinery. ? Can cause constipation. You may need to take actions to prevent or treat constipation, such as: ? Take bksa-cyc-pczxtvp or prescription medicines. ? Eat foods that are high in fiber, such as fresh fruits and vegetables, whole grains, and beans. ? Limit foods that are high in fat and processed sugars, such as fried or sweet foods. Do not drive for 24 hours if you were given a sedative during your procedure. Activity Return to your normal activities as told by your health care provider. Ask your health care provider what activities are safe for you. Do not lift anything that is heavier than 10 lb (4.5 kg), or the limit that you are told, for 3 weeks after the procedure or until your health care provider says that it is safe. Avoid intense physical activity for as long as told by your health care provider. Avoid sitting for a long time without moving. Get up and move around one or more times every few hours. This helps to prevent blood clots. You may increase your physical activity gradually as you start to feel better. Lifestyle Do not drink alcohol for as long as told by your health care provider. This is especially important if you are taking prescription pain medicines. Do not engage in sexual activity until your health care provider says that you can do this. General instructions Do not take baths, swim, or use a hot tub until your health care provider approves. Drink enough fluid to keep your urine pale yellow. Urinate as soon as you feel the need to. Do not try to hold your urine for long periods of time. If your health care provider approves, you may take a stool softener for 2 3 weeks to prevent you from straining to have a bowel movement. Wear compression stockings as told by your health care provider. These stockings help to prevent blood clots and reduce swelling in your legs. Keep all follow-up visits as told by your health care provider. This is important. Contact a health care provider if you have: Difficulty urinating. A fever. Pain that gets worse or does not improve with medicine. Blood in your urine that does not go away after 1 week of resting and drinking more fluids. Swelling in your penis or testicles. Get help right away if: You are unable to urinate. You are having more blood clots in your urine instead of fewer. You have: ? Large blood clots. ? A lot of blood in your urine. ? Pain in your back or lower abdomen. ? Pain or swelling in your legs. ? Chills and you are shaking. ? Difficulty breathing or shortness of breath. Summary After the procedure, it is common to have a small amount of blood in your urine. Avoid heavy lifting and intense physical activity for as long as told by your health care provider. Urinate as soon as you feel the need to. Do not try to hold your urine for long periods of time. Keep all follow-up visits as told by your health care provider. This is important. This information is not intended to replace advice given to you by your health care provider. Make sure you discuss any questions you have with your health care provider. Document Released: 08/25/2006 Document Revised: 12/15/2019 Document Reviewed: 05/26/2019 Elsevier Patient Education 2020 [employer] Additional Information VACCINATE! IT SAVES LIVES! Members of the community who have not yet received the COVID-19 vaccine and would like to receive it can visit one of [facility] vaccine clinics. There are many vaccine clinic locations within the [facility]. For locations and available times, please visit [email or web address] It is important to note that some COVID mobile vaccine clinics are held outdoors and may be canceled in rainy or stormy conditions. To learn more about pediatric vaccinations (ages 5-11), we invite you to visit the [employer]s webpage. [email or web address] -[email or web address] To learn more about the COVID-19 vaccine, we invite you to visit the CDC website for a list of frequently asked questions.https://www.cdc.gov/coronavi flor/2019-ncov/vaccines/faq.html [email or web address] Patient Portal Access Instructions: Stay connected with your healthcare team and access your personal medical information anytime with the [email or web address] Patient Portal. Please follow the directions below to create your [email or web address] account: 1.Access the email account you provided upon registration to the hospital/physician office.2.Look for an invitation email from [facility].3.Open the email and access the invitation link: Accept Invitation to [email or web address].4.Fill in the required em to create your account. To access your account, visit [email or web address]. Click the blue button labeled Access Patient Portal and then log in with the username and password that you created in the steps above. You will be able to view your test results, lab results, a summary of your visits, upcoming appointments and more. There is also a convenient messaging option where you can send secure messages to your provider. In addition, you will have the ability to download any documents or summaries to your computer and/or send the information securely to a physician. Remember that your healthcare information is confidential, so carefully consider who you will allow to register on the [facility] Patient Portal for access to your information. You can also access the [facility] Patient Portal on the [facility] tere. Simply click on Patient Portal and then log into your account. If you would like to receive a full copy of your medical records, please contact the [facility] Medical Records Department by calling [phone], Friday through Friday between 8 a.m. and 4:30 p.m. HOW TO SAFELY DISPOSE OF PRESCRIPTION MEDICATIONS Please use one of the following methods to safely dispose of your unused medications. 1.Use a drug disposal kit: the drug disposal pouch allows you to safely discard your old and unused drugs. Ask your nurse to give you one when you are discharged.2.Visit a local take-back location: Many local pharmacies and police departments have programs that collect old and unwanted prescription drugs. Call your local pharmacy or go to http://Pharmacopeia/8X0Ra7g to find one close to you.3.Make use of household items: Use cat litter or old coffee grounds to dispose medications if other options are not available. Mix your drugs with these household products, seal them in an airtight container and throw it into the garbage. Call [facility]: [phone] to be sure your drugs can be disposed of in this way. Some medicines may require a different approach.4.Never flush your medications down the toilet. IF YOU HAVE BEEN PRESCRIBED AN OPIOID FOR PAIN If you have been prescribed an opioid (such as hydrocodone, oxycodone or morphine), it is critical to understand the possible side effects and risks of opioid pain medications. Even when taken as directed, opioids can have several side effects including: Tolerance, meaning you might need to take more of a medication for the same pain relief. Nausea, vomiting and/or constipation. Sleepiness, dizziness, dry mouth, confusion, depression or itching. Physical dependence, meaning you have withdrawal symptoms when a medication is stopped, can develop within a few days. KNOW YOUR RESPONSIBILITIES It is important to know exactly how much and how often to take the opioid pain medications you are prescribed. Never take opioids in higher amounts or more often than prescribed. Do not combine opioids with alcohol or other drugs that cause drowsiness, such as benzodiazepines, also known as benzos, including diazepam and alprazolam, muscle relaxants or sleep aids. Never sell or share prescription opioids. This is illegal. Store opioids in a secure place and out of reach of others (including children, family, friends and visitors). The last page of this document has been signed and retained as a CHART COPY. Signatures Patient Education Materials Transurethral Resection of the Prostate, Care After Medication Leaflets My discharge plan and instructions have been reviewed and explained to me and I,YUNIOR RUSHING understand my current condition and have read and understand these discharge instructions. I have received a written copy of the plan/instructions. If I have questions, I am aware that I should contact my doctor. 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 Objective Vitals and Measurements T: 36.4 C (Oral) TMIN: 36.3 C (Temporal Artery) TMAX: 36.9 C (Oral) HR: 66(Monitored) RR: 16 BP: 124/61 SpO2: 92% HT: 172.7 cm WT: 77.2 kg BMI: 25.88 Intake and Output 7AM Yesterday to 7AM Today Intake and Output (Last 24 hours) Intake Administration Information 1010.00 Output Urinary Catheter Output: 14036.00 Total Summary Total Intake 1010.00 Total Output 71373.00 Fluid Balance -88409.00 Physical Exam Weight Dosing Weight: 77.2 kg (05/30/23) Dosing Weight: 77.2 kg (05/30/23) Medications Medications (17) Active Scheduled: (7) aspirin 81 mg EC 81 mg 1 tab(s), Oral, Daily atorvastatin 40 mg tablet 40 mg 1 tab(s), Oral, qDay benazepril 10 mg tablet 10 mg 1 tab(s), Oral, Daily famotidine 20 mg tablet 20 mg 1 tab(s), Oral, BID famotidine 20 mg/2 mL vial 20 mg 2 mL, IV Push, q12h metoprolol succinate 50 mg ER tablet 50 mg 1 tab(s), Oral, qDay tamsulosin 0.4 mg Capsule 0.4 mg 1 cap(s), Oral, qDay Continuous: (4) Lactated Ringers 1,000 mL 1,000 mL, Intravenous, 20 mL/hr Lactated Ringers 1,000 mL 1,000 mL, Intravenous, 20 mL/hr NS (0.9% nacl) 1000 mL 1,000 mL, Intravenous, 100 mL/hr Sodium Chloride 0.9% IRR 3,000 mL 3,000 mL, Topical PRN: (6) acetaminophen 325 mg Tablet 650 mg 2 tab(s), Oral, q4h fentaNYL 50 mcg/mL (2mL) ampule 50 mcg 1 mL, IV Push, q5min hydromorphone 1 mg/mL (1mL) INJ 0.2 mg 0.2 mL, IV Push, q5min meperidine 25 mg/mL 1 mL 25 mg 1 mL, IV Bolus, q3h ondansetron 2 mg/ 1 mL 2 mL INJ 4 mg 2 mL, IV Push, q8h ondansetron 2 mg/ 1 mL 2 mL INJ 4 mg 2 mL, IV Push, AsDirected Lab Results 05/30 13:15 WBC: 5.1 Hgb: 15.2 Hct: 44.5 Platelet: 228 Neutrophil %: 63.4 Glucose Level: 110 Sodium Level: 141 Potassium Level: 4.0 BUN: 12 Creatinine Lvl (s): 0.91 EKG Electrocardiogram [AOH] (EKG [AOH]) - InProcess -- 05/30/23 12:42:00 EDT, ORDERED BY Mya BOWMAN CRNA Assessment/Plan Orders: acetaminophen, Start: 05/30/23 17:45:00 EDT, Dose = 650 mg, = 2 tab(s), Oral, q4h, PRN, Pain, scale 1-3, 0, 05/30/23 17:45:00 EDT aspirin, Start: 05/30/23 14:59:00 EDT, Dose = 81 mg, = 1 tab(s), Oral, Daily, 0, 05/30/23 14:59:00 EDT aspirin, Dose : 81 mg = 1 tab(s), Oral, Daily, 0 Refill(s) atorvastatin, Start: 05/30/23 22:00:00 EDT, Dose = 40 mg, = 1 tab(s), Oral, qDay, 0, 05/30/23 14:59:00 EDT atorvastatin, 0 Refill(s) benazepril, Dose : 10 mg = 1 tab(s), Oral, Daily, 0 Refill(s) benazepril, Start: 05/30/23 14:59:00 EDT, Dose = 10 mg, = 1 tab(s), Oral, Daily, 0, 05/30/23 14:59:00 EDT ciprofloxacin, Dose : 500 mg = 1 tab(s), Oral, q12h, X 7 day(s), # 14 tab(s), 0 Refill(s), 06/06/23 15:00:00 EDT, Pharmacy: [facility]/pharmacy #[id number], 172.7, cm, 05/30/23 13:09:00 EDT, Height, 77.2, kg, 05/30/23 13:09:00 EDT, Dosing Weight famotidine, Start: 05/30/23 21:00:00 EDT, Dose = 20 mg, = 2 mL, IV Push, q12h, 0, 05/30/23 17:45:00 EDT famotidine, Start: 05/30/23 14:59:00 EDT, Dose = 20 mg, = 1 tab(s), Oral, BID, 0, 05/30/23 14:59:00 EDT famotidine, Dose : 20 mg = 1 tab(s), Oral, BID, 0 Refill(s) Lactated Ringers Infusion 1,000 mL, Start: 05/30/23 17:45:00 EDT, Rate: 20 mL/hr, 05/30/23 17:45:00 EDT metoprolol, Start: 05/30/23 14:59:00 EDT, Dose = 50 mg, = 1 tab(s), Oral, qDay, 0, 05/30/23 14:59:00 EDT metoprolol, Dose : 50 mg = 1 tab(s), Oral, qDay, 0 Refill(s) ondansetron, Start: 05/30/23 17:45:00 EDT, Dose = 4 mg, = 2 mL, IV Push, q8h, PRN, Nausea, 0, 05/30/23 17:45:00 EDT Sodium Chloride 0.9% intravenous solution 1000 mL, Start: 05/30/23 7:18:00 EDT, 18 hour(s), Stop date 05/31/23 19:17:00 EDT, Rate: 100 mL/hr sodium chloride 3,000 mL, Start: 05/30/23 17:45:00 EDT, Topical, for continuous Bladder irrigation, 3,000, 05/30/23 17:45:00 EDT tamsulosin, Start: 05/30/23 14:59:00 EDT, Dose = 0.4 mg, = 1 cap(s), Oral, qDay, 0, 05/30/23 14:59:00 EDT Ambulate Ambulate Assign to Observation status Code Status Diet Order Electrocardiogram [AOH] Incentive Spirometer IV Catheter Insertion/Care NPO Pathology Tissue Request Pulse Oximeter - Intermittent Sequential Compression Device Application Up to Chair Urinary Catheter Insertion/Care Vital Signs Digitally Signed by ISIDORO SHETH MD on 05/31/2023 08:16 AM [facility] Anesthesiology Consult note 05-30-2023 Note Date & Type Note Facility 05-30-2023 Anesthesiology Consult note Patient: YUNIOR RUSHING Age: 72 years Sex: Male : 1950 Associated Diagnoses: None Author: LEILA LILLY APRN-SPEECH THERAPY TEACHER Preoperative Information Time of last food or liquid consumption: 05/29/2023 23:59:00 Anesthesia history Patient's history: negative. Family's history: negative. Review of Systems Ear/Nose/Mouth/Throat: Negative except as documented in history of present illness. Respiratory: Negative except as documented in history of present illness. Cardiovascular: Negative except as documented in history of present illness. Gastrointestinal: Negative except as documented in history of present illness. Genitourinary: Negative except as documented in history of present illness. Endocrine: Negative except as documented in history of present illness. Musculoskeletal: Negative except as documented in history of present illness. Integumentary: Negative except as documented in history of present illness. Neurologic: Negative except as documented in history of present illness. Health Status Allergies: Allergic Reactions (Selected) Severity Not Documented Opium- Swelling., Allergies (1) ActiveReaction opiumSwelling Current medications: (Selected) Inpatient Medications Ordered NS 1000 mL: 100 mL/hr, Intravenous, Stop: 05/31/23 19:17:00 EDT aspirin 81 mg oral delayed release tablet: 81 mg, 1 tab(s), Oral, Daily benazepril: 10 mg, 1 tab(s), Oral, Daily famotidine: 20 mg, 1 tab(s), Oral, BID metoprolol succinate 50 mg oral TABLET extended release: 50 mg, 1 tab(s), Oral, qDay tamsulosin: 0.4 mg, 1 cap(s), Oral, qDay Incomplete atorvastatin: Prescriptions Prescribed Cipro 500 mg oral tablet: 500 mg, 1 tab(s), Oral, q12h, for 7 day(s), 14 tab(s), 0 Refill(s) Documented Medications Documented aspirin 81 mg oral delayed release tablet: 81 mg, 1 tab(s), Oral, Daily, 0 Refill(s) aspirin 81 mg oral delayed release tablet: 81 mg, 1 tab(s), Oral, Daily, 0 Refill(s) atorvastatin: 0 Refill(s) benazepril 10 mg oral tablet: 10 mg, 1 tab(s), Oral, Daily, 0 Refill(s) benazepril 10 mg oral tablet: 10 mg, 1 tab(s), Oral, Daily, 30 tab(s), 0 Refill(s) famotidine 20 mg oral tablet: 20 mg, 1 tab(s), Oral, BID, 0 Refill(s) famotidine 20 mg oral tablet: 20 mg, 1 tab(s), Oral, BID, 60 tab(s), 0 Refill(s) metoprolol succinate 50 mg oral TABLET extended release: 50 mg, 1 tab(s), Oral, qDay, 0 Refill(s) metoprolol succinate 50 mg oral TABLET extended release: 50 mg, 1 tab(s), Oral, qDay, 30 tab(s), 0 Refill(s) rosuvastatin 20 mg oral tablet: 20 mg, 1 tab(s), Oral, Daily, 0 Refill(s), Medications (6) Active Scheduled: (5) aspirin 81 mg EC 81 mg 1 tab(s), Oral, Daily benazepril 10 mg tablet 10 mg 1 tab(s), Oral, Daily famotidine 20 mg tablet 20 mg 1 tab(s), Oral, BID metoprolol succinate 50 mg ER tablet 50 mg 1 tab(s), Oral, qDay tamsulosin 0.4 mg Capsule 0.4 mg 1 cap(s), Oral, qDay Continuous: (1) NS (0.9% nacl) 1000 mL 1,000 mL, Intravenous, 100 mL/hr PRN: (0) Problem list: No problem items selected or recorded., Active Problems (2) Hyperlipidemia Hypertension Histories Past Medical History: No active or resolved past medical history items have been selected or recorded. Family History: No family history items have been selected or recorded. Procedure history: Stent placement ([id number]). Knee replacement ([id number]). Comments: 05/30/2023 12:51 Mai Garcia RN right Bunion ([id number]). Comments: 05/30/2023 12:51 Mai Garcia RN left Spinal fusion ([id number]). Comments: 05/30/2023 12:52 Mai Garcia RN bottom 3 levels Cataract ([id number]). Nose ([id number]). Comments: 05/30/2023 12:52 Mai Garcia RN deviated septum surgery Social History Social & Psychosocial Habits No Data Available . Physical Examination Vital Signs 05/30/2023 15:40 EDT Heart Rate Monitored 62 bpm bpm Respiratory Rate - Anes 18 br/min br/min Systolic Blood Pressure Non-Invasive 87 mmHg mmHg Diastolic Blood Pressure Non-Invasive 54 mmHg mmHg 05/30/2023 15:35 EDT Heart Rate Monitored 66 bpm bpm Respiratory Rate - Anes 12 br/min br/min Systolic Blood Pressure Non-Invasive 105 mmHg mmHg Diastolic Blood Pressure Non-Invasive 59 mmHg mmHg 05/30/2023 15:30 EDT Heart Rate Monitored 66 bpm bpm Respiratory Rate - Anes 14 br/min br/min Systolic Blood Pressure Non-Invasive 89 mmHg mmHg Diastolic Blood Pressure Non-Invasive 53 mmHg mmHg 05/30/2023 15:25 EDT Heart Rate Monitored 65 bpm bpm Respiratory Rate - Anes 16 br/min br/min Systolic Blood Pressure Non-Invasive 114 mmHg mmHg Diastolic Blood Pressure Non-Invasive 59 mmHg mmHg 05/30/2023 15:20 EDT Heart Rate Monitored 67 bpm bpm Respiratory Rate - Anes 11 br/min br/min Systolic Blood Pressure Non-Invasive 114 mmHg mmHg Diastolic Blood Pressure Non-Invasive 69 mmHg mmHg 05/30/2023 15:15 EDT Heart Rate Monitored 66 bpm bpm Respiratory Rate - Anes 19 br/min br/min Systolic Blood Pressure Non-Invasive 107 mmHg mmHg Diastolic Blood Pressure Non-Invasive 62 mmHg mmHg 05/30/2023 15:10 EDT Heart Rate Monitored 63 bpm bpm Respiratory Rate - Anes 0 br/min br/min Systolic Blood Pressure Non-Invasive 139 mmHg mmHg Diastolic Blood Pressure Non-Invasive 69 mmHg mmHg 05/30/2023 12:53 EDT Temperature Temporal Artery 36.7 DegC Apical Heart Rate 69 bpm Respiratory Rate 12 br/min LOW Systolic Blood Pressure Non-Invasive 123 mmHg Diastolic Blood Pressure Non-Invasive 70 mmHg Vital Signs(last 24 hrs) Last Charted Heart Rate [id number] bpm (MAY 30 15:40) Resp Rate L 12br/min (MAY 30 12:53) SBP87 mmHg (MAY 30 15:40) DBP54 mmHg (MAY 30 15:40) Measurements from flowsheet : Measurements 05/30/2023 12:53 EDT Height 172.7 cm Height in inches 68 inch(es) Admission Weight 77.2 kg Weight Lbs 169.8 lb [place] Body Weight 68.38 kg Admission Body Mass Index 25.88 m2 Pain assessment: Pain Assessment 05/30/2023 12:53 EDT Primary Pain Intensity 0 Pain Scale Type 0-10 Pain scale . General: Alert and oriented. Airway: Normal neck range of motion. Mallampati classification: II (soft palate, fauces, uvula visible). Head: Normocephalic. Dentition Evaluation: Intact, Own teeth. Neck: Full range of motion. Respiratory: Lungs are clear to auscultation. Cardiovascular: Normal rate. Heart Sounds: Normal. Gastrointestinal: Soft. Musculoskeletal Normal range of motion. Integumentary: Intact, Warm, Dry. Neurologic: Alert, Oriented. Review / Management Results review: Labs (Last four charted values) WBC 5.1(MAY 30) Hgb 15.2(MAY 30) Hct 44.5(MAY 30) Plt 228(MAY 30) Na 141(MAY 30) K 4.0(MAY 30) CO2 28(MAY 30) Cl 103(MAY 30) Cr 0.91(MAY 30) BUN 12(MAY 30) Glucose 110(MAY 30) Ca 9.2(MAY 30) , Lab results 05/30/2023 15:51 EDT SN - GCD - ASA Class 3 05/30/2023 15:41 EDT phenylephrine 100 mcg mcg 05/30/2023 15:40 EDT Heart Rate Monitored 62 bpm bpm Respiratory Rate - Anes 18 br/min br/min Systolic Blood Pressure Non-Invasive 87 mmHg mmHg Diastolic Blood Pressure Non-Invasive 54 mmHg mmHg Oxygen Saturation 98 % % 05/30/2023 15:35 EDT Heart Rate Monitored 66 bpm bpm Respiratory Rate - Anes 12 br/min br/min Systolic Blood Pressure Non-Invasive 105 mmHg mmHg Diastolic Blood Pressure Non-Invasive 59 mmHg mmHg Oxygen Saturation 98 % % 05/30/2023 15:31 EDT phenylephrine 100 mcg mcg 05/30/2023 15:30 EDT Heart Rate Monitored 66 bpm bpm Respiratory Rate - Anes 14 br/min br/min Systolic Blood Pressure Non-Invasive 89 mmHg mmHg Diastolic Blood Pressure Non-Invasive 53 mmHg mmHg Oxygen Saturation 97 % % 05/30/2023 15:25 EDT Heart Rate Monitored 65 bpm bpm Respiratory Rate - Anes 16 br/min br/min Systolic Blood Pressure Non-Invasive 114 mmHg mmHg Diastolic Blood Pressure Non-Invasive 59 mmHg mmHg Oxygen Saturation 97 % % AOH MAIN OR Preop & Phase II Record AOH MAIN OR Preop & Phase II Record 05/30/2023 15:21 EDT SN - Proc - Actual Procedure TRANSURETHERAL RESECTION OF PROSTATE WITH OLYMPUS 05/30/2023 15:21 EDT SN - SP - Prep Agents Betadine Scrub SN - SP - HR - Method N/A 05/30/2023 15:20 EDT Heart Rate Monitored 67 bpm bpm Respiratory Rate - Anes 11 br/min br/min Systolic Blood Pressure Non-Invasive 114 mmHg mmHg Diastolic Blood Pressure Non-Invasive 69 mmHg mmHg Oxygen Saturation 99 % % 05/30/2023 15:19 EDT SN - PP - Body Position Lithotomy Standard Intra-op 05/30/2023 15:17 EDT SN - CAt - Case Attendee SN - CAt - Case Attendee SN - CAt - Role Performed Scrub 1 05/30/2023 15:17 EDT SN - CTm - Surgery Start 05/30/2023 15:17 05/30/2023 15:17 EDT SN - CTm - Surgery Start Surgery Start 05/30/2023 15:15 EDT Heart Rate Monitored 66 bpm bpm Respiratory Rate - Anes 19 br/min br/min Systolic Blood Pressure Non-Invasive 107 mmHg mmHg Diastolic Blood Pressure Non-Invasive 62 mmHg mmHg Oxygen Saturation 100 % % dexAMETHasone 4 mg mg fentaNYL 50 mcg mcg ondansetron 4 mg mg 05/30/2023 15:11 EDT lidocaine 100 mg mg propofol 200 mg mg 05/30/2023 15:10 EDT Heart Rate Monitored 63 bpm bpm Respiratory Rate - Anes 0 br/min br/min Systolic Blood Pressure Non-Invasive 139 mmHg mmHg Diastolic Blood Pressure Non-Invasive 69 mmHg mmHg Oxygen Saturation 94 % % 05/30/2023 15:08 EDT SN - CTm - Anesthesia Start Time Anesthesia Start (Modified) 05/30/2023 15:01 EDT SN - GCD - Post-operative Diagnosis BENIGN PROSTATIC HYPERPLASIA WITH LOWER URINARY TRACT SYMPTOMS SN - GCD - Case Level Level 3 05/30/2023 15:00 EDT SN - PTCare - Anti-thromboembolism Linda Sequential Compression Device (SCD) 05/30/2023 15:00 EDT SN - Assess - LOC Alert, Awake SN - Assess - Orientation Oriented X 3 SN - Assess - Post-op Skin Integrity Intact/Dry 05/30/2023 15:00 EDT SN - CAt - Case Attendee SN - CAt - Case Attendee SN - CAt - Case Attendee SN - CAt - Case Attendee SN - CAt - Case Attendee SN - CAt - Case Attendee SN - CAt - Case Attendee SN - CAt - Case Attendee SN - CAt - Role Performed Primary Surgeon SN - CAt - Role Performed Blade Boner 1 SN - CAt - Role Performed Fun House Attendant 1 SN - CAt - Role Performed SPEECH THERAPY TEACHER 05/30/2023 13:18 EDT SN - Preop - CTm Pt in SDS Room 05/30/2023 12:35 SN - Preop - CTm Pt Ready for OR/Proced 05/30/2023 13:18 05/30/2023 13:16 EDT Sodium Chloride 0.9% Begin Bag 1,000 mL mL 05/30/2023 13:15 EDT WBC 5.1 10^3/mcL RBC 4.61 10^6/mcL Hgb 15.2 G/dL Hct 44.5 % MCV 96.6 fL HI MCH 32.9 pg HI MCHC 34.1 G/dL RDW 13.8 % Platelet 228 10^3/mcL MPV 7.7 fL Neutrophil % 63.4 % Lymphocyte % 19.1 % Monocyte % 14.7 % HI Eosinophil % 2.2 % Basophil % 0.6 % Neutrophil, Absolute 3.2 10^3/mcL Lymphocyte, Absolute 1.0 10^3/mcL Monocyte, Absolute 0.7 10^3/mcL Eosinophil, Absolute 0.1 10^3/mcL Basophil, Absolute 0.0 10^3/mcL Glucose Level 110 mg/dL Sodium Level 141 mmol/L Potassium Level 4.0 mmol/L Chloride 103 mmol/L CO2 28 mmol/L Electrolyte Balance 10.0 mEq/L BUN 12 mg/dL Creatinine Lvl (s) 0.91 mg/dL BUN/Creatinine Ratio 13 ratio Calcium Lvl 9.2 mg/dL GFR Non- 82 ml/min/1.73sqm NA GFR 99 ml/min/1.73sqm NA Creatinine Clearance Calc 70.97 mL/min 05/30/2023 13:14 EDT Antecubital Left 05/30/2023 20 gauge Peripheral IV Activity: Insert new site Peripheral IV Dressing Condition: Clean, Dry, Intact Peripheral IV Dressing Activity: Applied, Transparent dressing Peripheral IV Line Status/Patency: Flushes easily, Continuous infusion Peripheral IV Site Condition: No complications Peripheral IV Equipment: Extension set, PRN Adaptor 05/30/2023 13:02 EDT Electrocardiogram [AOH] - CV Completed (In Progress) 05/30/2023 12:53 EDT Height 172.7 cm Height in inches 68 inch(es) Admission Weight 77.2 kg Weight Lbs 169.8 lb [place] Body Weight 68.38 kg Admission Body Mass Index 25.88 m2 Temperature Temporal Artery 36.7 DegC Apical Heart Rate 69 bpm Respiratory Rate 12 br/min LOW Systolic Blood Pressure Non-Invasive 123 mmHg Diastolic Blood Pressure Non-Invasive 70 mmHg Primary Pain Intensity 0 Pain Scale Type 0-10 Pain scale Heart Rhythm Regular Respirations Unlabored Respiratory Pattern Regular All Lobes Breath Sounds Clear Oxygen Therapy Room air Oxygen Saturation 98 % Abdomen Description Non-distended Abdomen Palpation Non-Tender Bowel Sounds All Quadrants Present Urinary Elimination Voiding, no difficulties Skin Temperature Warm Skin Description [place], Dry Skin Integrity Intact IV Present Present Neurological Symptoms Patient denies Extremity Movement Equal Characteristics of Speech Clear Level of Consciousness Alert Strength All Extremities Strong Tone All Extremities Normal Sensation All Extremities Intact Affect/Behavior Appropriate Orientation Oriented x 4 Allergies Yes Anesthesia Extension Set Applied Yes Marriage Performer On Yes Consent Form Signed Yes Patient Dressed In Hospital gown CHG Preoperative Wash/Wipe Night before procedure, Day of procedure, Site specific wipe Preop Nasal Swab Povidone-Iodine CHG Skin Prep Completed for Eligible Surgery History & Physical Update On Chart Yes History & Physical On Chart Yes Obstructive Sleep Apnea Assess Completed Yes Belongings At Bedside Glasses, Pants, Shirt, Shoes, Socks, Undergarments Activity Status ADL Awake NPO Status Maintained Standard Safety ID band on, Allergy Band on, Call device within reach, Bed in low position, Wheels locked, Upper/Half-Length side-rails up, Safety level maintained Allergy Band on and Verified Yes Patient ID Band on and Verified Yes Implants Verified Yes Pacemaker/AICD Verified Yes Site Verified by Patient/Family Yes Anesthesia Consent Signed Yes Blood Consent Signed Yes Last Fluid Intake 05/29/2023 20:00 Last Food Intake 05/29/2023 20:00 Last Void 05/30/2023 12:57 05/30/2023 12:46 EDT Designated Person #1 We May Share MOISE Koehler [phone] Designated Person #1 Relationship Spouse Privacy Restrictions Requested None Status N/A Sensory Deficits None Sleep Apnea Snore No Sleep Apnea Tired No Sleep Apnea Obstruction No Sleep Apnea Pressure Yes Sleep Apnea BMI No Sleep Apnea Age Yes Sleep Apnea Neck No Sleep Apnea Gender Yes Sleep Apnea Score 3 Diagnosed With Sleep Apnea No Advanced Directives No - refuses information Infectious Disease Symptoms Patient states no symptoms Infectious Disease Recent Exposure No Alcohol and Drug Use No Employee of Institutional Living No Health Care Employee No History of Exposure to TB No History of Positive Chest X-Ray for TB No History of Positive TB Skin Test No Homeless No Known Immunosuppression No Recent Immigrant No Resident of Institutional Living No Bloody Sputum No Fatigue No Fever No Loss of Appetite No Night Sweats No Persistent Cough > 3 Weeks No Weight Loss No Barriers to Learning None evident Teaching Method Explanation, Printed materials Preferred Spoken Language Greek Preferred Written Language Greek Teaching Evaluation Verbalizes/Nonverbally indicates understanding Safety Brochure Information Reviewed Unable to complete [facility] Video Viewed No Information Given by Patient Patient's Current Physicians Patient's Current Physicians Discharge To, Anticipated Home independently Prev Test Positive/Diagnosis w/COVID-19 No Current Quarantine/Isolated any Illness No Any Contact with Sick Animals/Birds No Traveled Anywhere in Last 30 Days Yes Travel Where Within [facility] State(s) [place], [place], [place], [place], [place], [place] Lost Weight Unintentionally Recently No Eat Poorly Due to Decreased Appetite No Total MST Score 0 N/A Personal Devices, Patient Valuables Glasses, Hearing aid, left, Hearing aid, right Anesthesia/Transfusions Prior anesthesia Admission Note-Nursing Same Day Patient History . Assessment and Plan [place] [employer] (ASA) physical status classification: Class III. Anesthetic Preoperative Plan Premedication: intravenous. Anesthetic technique: General. Induction: intravenously. Maintenance airway: Laryngeal mask airway. Postoperative pain management: Per surgeon. Risks discussed: nausea, vomiting, headache, sore throat, dental injury, hypotension, allergic reaction, serious complications. Informed consent: signed by patient. Digitally Signed by LEILA LILLY on 05/30/2023 03:52 PM [facility] Clinical Note 05-30-2023 Note Date & Type Note Facility 05-30-2023 Note Sinus rhythm Borderline left axis deviation Abnormal R-wave progression, early transition Electronic Signature: MARIE JENKINS MD 05/31/2023 19:04:36 [facility] Evaluation + Plan note Note Date & Type Note Facility Evaluation + Plan note No data available for this section [facility] Evaluation note Note Date & Type Note Facility documented in this encounter [facility] Chief Complaint Chief Complaint Description Start Date left shoulder pain Preliminary chief co mplaint data, not yet signed by the author as of Instructions Instruction Description Start Date CompletedPatient advised to follow-up with Primary Care Physician for BMI management. Advance Directives No Advanced Directives Records FoundDocuments on File Type Date Recorded Patient [employer] Concierge Expl anation ACP-Advance Directive ACP-Power of Esl Professor Latest Code Status on File Code Status Date Activated Date Inactivated Comments Full Code 08/04/2020 10:30 AM Full Code 08/04/2020 8:14 AM 08/04/2020 10:30 AM Documents on File Type Date Recorded Patient [employer] Concierge Expl anation ACP-Advance Directive ACP-Power of Esl Professor Latest Code Status on File Code Status Date Activated Date Inactivated Comments Full Code 08/04/2020 10:30 AM 08/04/2020 6:06 PM Full Code 08/04/2020 8:14 AM 08/04/2020 10:30 AM Assessments Diagnosis 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 Family History There may be information available, but it has not been provided by the sender.No Family History Records FoundNo Family History Records FoundNo Family History Records Found No data available for this section No Family History Records Found History of Present Illness There may be information available, but it has not been provided by the sender. * Rock Castelan (Ex Phys) - 09/06/2020 6:45 AM EST Cardiac Rehabilitation [facility] Based Program Supervising Physician: Dr. Barragan Diagnosis: PCI w/stent Phase: 2 Monitor: Yes Session Number: 1 Today's exercise session was comprised of a warm-up, aerobic conditioning phase, aerobic cool-down,and NO free weight resistance training. Patient tolerated prescribed exercise workload. Tele SR without ectopic beats. Vitals WNL for patient. No chest discomfort. No medication changes. This is a hospital based cardiac rehab program. Patient working towards exercise goals by increasing exercise frequency, intensity and duration. Patient working towards education goal by attending education sessions in cardiac rehabilitation. Patient has verbalized understanding of diabetes education topic and the relation to disease managment. Patient's Daily Exercise Log will be scanned into [employer] once it is completed. These can be viewed bygoing under the Scanned Documents tab and looking for documents labeled Cardiac Rehabilitation. Daily Exercise Logs contain exercise data such as, but not limited to modality, intensity, durationand frequency of exercise, along with vital signs pre-, during, and post-exercise. Refer to patient's paper medical record for ECG rhythm strips, physician prescribed Individualized Treatment Plan, and education sessions covered. Abelardo Downing documented in this encounter* Rock Castelan (Ex Phys) - 09/11/2020 6:32 AM EST Cardiac Rehabilitation [facility] Based Program Supervising Physician: Stephen Elias Diagnosis: PCI w/stent Phase: 2 Monitor: Yes Session Number: 2 Today's exercise session was comprised of a warm-up, aerobic conditioning phase, aerobic cool-down,and free weight resistance training. Patient tolerated prescribed exercise workload. Tele SR without ectopic beats. Vitals WNL for patient. No chest discomfort. No medication changes. This is a hospital based cardiac rehab program. Patient working towards exercise goals by increasing exercise intensity and duration. Patient working towards education goal by attending education sessions in cardiac rehabilitation. Patient has verbalized understanding of general nutrition education topic and the relation to disease managment. Patient's Daily Exercise Log will be scanned into [employer] once it is completed. These can be viewed bygoing under the Scanned Documents tab and looking for documents labeled Cardiac Rehabilitation. Daily Exercise Logs contain exercise data such as, but not limited to modality, intensity, durationand frequency of exercise, along with vital signs pre-, during, and post-exercise. Refer to patient's paper medical record for ECG rhythm strips, physician prescribed Individualized Treatment Plan, and education sessions covered. Abelardo Downing documented in this encounter* Rock Castelan Phys) - 09/13/2020 6:28 AM EST Cardiac Rehabilitation [facility] Based Program Supervising Physician: Stephen Elias Diagnosis: PCI w/stent Phase: 2 Monitor: Yes Session Number: 3 Today's exercise session was comprised of a warm-up, aerobic conditioning phase, aerobic cool-down,and free weight resistance training. Patient tolerated prescribed exercise workload. Tele SR without ectopic beats. Vitals WNL for patient. No chest discomfort. No medication changes. This is a hospital based cardiac rehab program. Patient working towards exercise goals by increasing exercise intensity. Patient working towards education goal by attending education sessions in cardiac rehabilitation. Patient has verbalized understanding of healthy eating for life education topic and the relation to disease managment. Patient's Daily Exercise Log will be scanned into [employer] once it is completed. These can be viewed bygoing under the Scanned Documents tab and looking for documents labeled Cardiac Rehabilitation. Daily Exercise Logs contain exercise data such as, but not limited to modality, intensity, durationand frequency of exercise, along with vital signs pre-, during, and post-exercise. Refer to patient's paper medical record for ECG rhythm strips, physician prescribed Individualized Treatment Plan, and education sessions covered. Abelardo Downing documented in this encounter* Jessica Meek (Ex Phys) - 09/15/2020 6:47 AM EST Cardiac Rehabilitation [facility] Based Program Supervising Physician: Stephen Elias Diagnosis: PCI w/stent Phase: 2 Monitor: Yes Session Number: 4 Today's exercise session was comprised of a warm-up, aerobic conditioning phase, aerobic cool-down,and free weight resistance training. Patient tolerated prescribed exercise workload. Tele SR without ectopic beats. Vitals WNL for patient. No chest discomfort. No medication changes. This is a hospital based cardiac rehab program. Patient working towards exercise goals by increasing exercise duration. Patient working towards education goal by attending education sessions in cardiac rehabilitation. Patient has verbalized understanding of Cholesterol education topic and the relation to disease managment. Patient's Daily Exercise Log will be scanned into [employer] once it is completed. These can be viewed bygoing under the Scanned Documents tab and looking for documents labeled Cardiac Rehabilitation. Daily Exercise Logs contain exercise data such as, but not limited to modality, intensity, durationand frequency of exercise, along with vital signs pre-, during, and post-exercise. Refer to patient's paper medical record for ECG rhythm strips, physician prescribed Individualized Treatment Plan, and education sessions covered. Abelardo Ash documented in this encounter* Leela Allen Rn, RN - 09/18/2020 6:50 AM EST [facility] Supervising Physician: Corby Weber Diagnosis: PCI w/stent Phase: 2 Monitor: Yes Session Number: 5 Today's exercise session was comprised of a warm-up, aerobic conditioning phase, aerobic cool-down,and free weight resistance training. Patient tolerated prescribed exercise workload. Tele SR without ectopic beats. Vitals WNL for patient. No chest discomfort. No medication changes. This is a hospital based cardiac rehab program. Patient working towards exercise goals by increasing exercise intensity and duration. Patient working towards education goal by attending education sessions in cardiac rehabilitation. Patient has verbalized understanding of reading food labels education topic and the relation to disease managment. Patient's Daily Exercise Log will be scanned into [employer] once it is completed. These can be viewed bygoing under the Scanned Documents tab and looking for documents labeled Cardiac Rehabilitation. Daily Exercise Logs contain exercise data such as, but not limited to modality, intensity, durationand frequency of exercise, along with vital signs pre-, during, and post-exercise. Refer to patient's paper medical record for ECG rhythm strips, physician prescribed Individualized Treatment Plan, and education sessions covered. Leela Allen RN documented in this encounter* Rock Castelan (Ex Phys) - 09/20/2020 6:31 AM EST [facility] Supervising Physician: Corby Weber Diagnosis: PCI w/stent Phase: 2 Monitor: Yes Session Number: 6 Today's exercise session was comprised of a warm-up, aerobic conditioning phase, aerobic cool-down,and free weight resistance training. Patient tolerated prescribed exercise workload. Tele SR without ectopic beats. Vitals WNL for patient. No chest discomfort. No medication changes. This is a hospital based cardiac rehab program. Patient working towards exercise goals by increasing exercise intensity. Patient working towards education goal by attending education sessions in cardiac rehabilitation. Patient has verbalized understanding of weight control education topic and the relation to disease managment. Patient's Daily Exercise Log will be scanned into [employer] once it is completed. These can be viewed bygoing under the Scanned Documents tab and looking for documents labeled Cardiac Rehabilitation. Daily Exercise Logs contain exercise data such as, but not limited to modality, intensity, durationand frequency of exercise, along with vital signs pre-, during, and post-exercise. Refer to patient's paper medical record for ECG rhythm strips, physician prescribed Individualized Treatment Plan, and education sessions covered. Abelardo Downing Phdavian documented in this encounter* Yurirossiemily Rock Larose (Ex Phys) - 09/27/2020 6:25 AM EST [facility] Supervising Physician: Ayden Jeff Diagnosis: PCI w/stent Phase: 2 Monitor: Yes Session Number: 9 Today's exercise session was comprised of a warm-up, aerobic conditioning phase, aerobic cool-down,and free weight resistance training. Patient tolerated prescribed exercise workload. Tele SR without ectopic beats. Vitals WNL for patient. No chest discomfort. No medication changes. This is a hospital based cardiac rehab program. Patient working towards exercise goals by sustaining exercise intensity and duration. Patient working towards education goal by attending education sessions in cardiac rehabilitation. Patient has verbalized understanding of environmental stress education topic and the relation to disease managment. Patient's Daily Exercise Log will be scanned into [employer] once it is completed. These can be viewed bygoing under the Scanned Documents tab and looking for documents labeled Cardiac Rehabilitation. Daily Exercise Logs contain exercise data such as, but not limited to modality, intensity, durationand frequency of exercise, along with vital signs pre-, during, and post-exercise. Refer to patient's paper medical record for ECG rhythm strips, physician prescribed Individualized Treatment Plan, and education sessions covered. Abelardo Downing Phdavian documented in this encounter* Jessica Meek (Ex Phys) - 09/29/2020 6:37 AM EST [facility] Supervising Physician: Ayden Jeff Diagnosis: PCI w/stent Phase: 2 Monitor: Yes Session Number: 10 Today's exercise session was comprised of a warm-up, aerobic conditioning phase, aerobic cool-down,and free weight resistance training. Patient tolerated prescribed exercise workload. Tele SR without ectopic beats. Vitals WNL for patient. No chest discomfort. No medication changes. This is a hospital based cardiac rehab program. Patient working towards exercise goals by increasing exercise intensity. Patient working towards education goal by attending education sessions in cardiac rehabilitation. Patient has verbalized understanding of Stress Management education topic and the relation to disease managment. Patient's Daily Exercise Log will be scanned into [employer] once it is completed. These can be viewed bygoing under the Scanned Documents tab and looking for documents labeled Cardiac Rehabilitation. Daily Exercise Logs contain exercise data such as, but not limited to modality, intensity, durationand frequency of exercise, along with vital signs pre-, during, and post-exercise. Refer to patient's paper medical record for ECG rhythm strips, physician prescribed Individualized Treatment Plan, and education sessions covered. Abelardo Ash documented in this encounter* Leela Allen (Rn), RN - 10/02/2020 6:56 AM EST [facility] Supervising Physician: Geoff Nobles Diagnosis: PCI w/stent Phase: 2 Monitor: Yes Session Number: 11 Today's exercise session was comprised of a warm-up, aerobic conditioning phase, aerobic cool-down,and free weight resistance training. Patient tolerated prescribed exercise workload. Tele SR with occasional PVC's. Vitals WNL for patient. No chest discomfort. No medication changes. This is a hospital based cardiac rehab program. Patient working towards exercise goals by increasing exercise duration. Patient working towards education goal by attending education sessions in cardiac rehabilitation. Patient has verbalized understanding of living with stress education topic and the relation to disease managment. Patient's Daily Exercise Log will be scanned into [employer] once it is completed. These can be viewed bygoing under the Scanned Documents tab and looking for documents labeled Cardiac Rehabilitation. Daily Exercise Logs contain exercise data such as, but not limited to modality, intensity, durationand frequency of exercise, along with vital signs pre-, during, and post-exercise. Refer to patient's paper medical record for ECG rhythm strips, physician prescribed Individualized Treatment Plan, and education sessions covered. Leela Allen RN documented in this encounter* Leela Allen Rn, RN - 10/06/2020 6:58 AM EST [facility] Supervising Physician: Geoff Nobles Diagnosis: PCI w/stent Phase: 2 Monitor: Yes Session Number: 13 Today's exercise session was comprised of a warm-up, aerobic conditioning phase, aerobic cool-down,and free weight resistance training. Patient tolerated prescribed exercise workload. Tele SR without ectopic beats. Vitals WNL for patient. No chest discomfort. No medication changes. This is a hospital based cardiac rehab program. Patient working towards exercise goals by sustaining exercise intensity and duration. Patient working towards education goal by attending education sessions in cardiac rehabilitation. Patient has verbalized understanding of exercise education topic and the relation to disease managment. Patient's Daily Exercise Log will be scanned into [employer] once it is completed. These can be viewed bygoing under the Scanned Documents tab and looking for documents labeled Cardiac Rehabilitation. Daily Exercise Logs contain exercise data such as, but not limited to modality, intensity, durationand frequency of exercise, along with vital signs pre-, during, and post-exercise. Refer to patient's paper medical record for ECG rhythm strips, physician prescribed Individualized Treatment Plan, and education sessions covered. Leela Allen RN documented in this encounter* Leela Allen Rn, RN - 10/09/2020 6:40 AM EST [facility] Supervising Physician: Dr Vallecillo Diagnosis: PCI w/stent Phase: 2 Monitor: Yes Session Number: 14 Today's exercise session was comprised of a warm-up, aerobic conditioning phase, aerobic cool-down,and free weight resistance training. Patient tolerated prescribed exercise workload. Tele SR without ectopic beats. Vitals WNL for patient. No chest discomfort. No medication changes. This is a hospital based cardiac rehab program. Patient working towards exercise goals by increasing exercise duration. Patient working towards education goal by attending education sessions in cardiac rehabilitation. Patient has verbalized understanding of coronary arteries education topic and the relation to disease managment. Patient's Daily Exercise Log will be scanned into [employer] once it is completed. These can be viewed bygoing under the Scanned Documents tab and looking for documents labeled Cardiac Rehabilitation. Daily Exercise Logs contain exercise data such as, but not limited to modality, intensity, durationand frequency of exercise, along with vital signs pre-, during, and post-exercise. Refer to patient's paper medical record for ECG rhythm strips, physician prescribed Individualized Treatment Plan, and education sessions covered. Leela Allen RN documented in this encounter* Rock Castelan (Ex Phys) - 10/11/2020 6:36 AM EST [facility] Supervising Physician: Dr. Vallecillo Diagnosis: PCI w/stent Phase: 2 Monitor: Yes Session Number: 15 Today's exercise session was comprised of a warm-up, aerobic conditioning phase, aerobic cool-down,and free weight resistance training. Patient tolerated prescribed exercise workload. Tele SR without ectopic beats. Vitals WNL for patient. No chest discomfort. No medication changes. This is a hospital based cardiac rehab program. Patient working towards exercise goals by sustaining exercise intensity and duration. Patient working towards education goal by attending education sessions in cardiac rehabilitation. Patient has verbalized understanding of heart A&P education topic and the relation to disease managment. Patient's Daily Exercise Log will be scanned into [employer] once it is completed. These can be viewed bygoing under the Scanned Documents tab and looking for documents labeled Cardiac Rehabilitation. Daily Exercise Logs contain exercise data such as, but not limited to modality, intensity, durationand frequency of exercise, along with vital signs pre-, during, and post-exercise. Refer to patient's paper medical record for ECG rhythm strips, physician prescribed Individualized Treatment Plan, and education sessions covered. Abelardo Downing documented in this encounter* Rock Castelan (Ex Phys) - 10/16/2020 6:23 AM EST [facility] Supervising Physician: Stephen Elias Diagnosis: PCI w/stent Phase: 2 Monitor: Yes Session Number: 17 Today's exercise session was comprised of a warm-up, aerobic conditioning phase, aerobic cool-down,and free weight resistance training. Patient tolerated prescribed exercise workload. Tele SR without ectopic beats. Vitals WNL for patient. No chest discomfort. No medication changes. This is a hospital based cardiac rehab program. Patient working towards exercise goals by increasing exercise duration. Patient working towards education goal by attending education sessions in cardiac rehabilitation. Patient has verbalized understanding of angina/NTG education topic and the relation to disease managment. Patient's Daily Exercise Log will be scanned into [employer] once it is completed. These can be viewed bygoing under the Scanned Documents tab and looking for documents labeled Cardiac Rehabilitation. Daily Exercise Logs contain exercise data such as, but not limited to modality, intensity, durationand frequency of exercise, along with vital signs pre-, during, and post-exercise. Refer to patient's paper medical record for ECG rhythm strips, physician prescribed Individualized Treatment Plan, and education sessions covered. Abelardo Downing documented in this encounter* Rock Castelan (Abelardo Phys) - 10/18/2020 6:24 AM EST [facility] Supervising Physician: Stephen Elias Diagnosis: PCI w/stent Phase: 2 Monitor: Yes Session Number: 18 Today's exercise session was comprised of a warm-up, aerobic conditioning phase, aerobic cool-down,and free weight resistance training. Patient tolerated prescribed exercise workload. Tele SR without ectopic beats. Vitals WNL for patient. No chest discomfort. No medication changes. This is a hospital based cardiac rehab program. Patient working towards exercise goals by sustaining exercise intensity and duration. Patient working towards education goal by attending education sessions in cardiac rehabilitation. Patient has verbalized understanding of heart attack education topic and the relation to disease managment. Patient's Daily Exercise Log will be scanned into [employer] once it is completed. These can be viewed bygoing under the Scanned Documents tab and looking for documents labeled Cardiac Rehabilitation. Daily Exercise Logs contain exercise data such as, but not limited to modality, intensity, durationand frequency of exercise, along with vital signs pre-, during, and post-exercise. Refer to patient's paper medical record for ECG rhythm strips, physician prescribed Individualized Treatment Plan, and education sessions covered. Abelardo Downing documented in this encounter* Rock Castelan (Ex Phys) - 10/20/2020 6:37 AM EST [facility] Supervising Physician: Stephen Elias Diagnosis: PCI w/stent Phase: 2 Monitor: Yes Session Number: 19 Today's exercise session was comprised of a warm-up, aerobic conditioning phase, aerobic cool-down,and free weight resistance training. Patient tolerated prescribed exercise workload. Tele SR without ectopic beats. Vitals WNL for patient. No chest discomfort. No medication changes. This is a hospital based cardiac rehab program. Patient working towards exercise goals by sustaining exercise intensity and duration. Patient working towards education goal by attending education sessions in cardiac rehabilitation. Patient has verbalized understanding of blood pressure education topic and the relation to disease managment. Patient's Daily Exercise Log will be scanned into [employer] once it is completed. These can be viewed bygoing under the Scanned Documents tab and looking for documents labeled Cardiac Rehabilitation. Daily Exercise Logs contain exercise data such as, but not limited to modality, intensity, durationand frequency of exercise, along with vital signs pre-, during, and post-exercise. Refer to patient's paper medical record for ECG rhythm strips, physician prescribed Individualized Treatment Plan, and education sessions covered. Rock Larose Abelardo Castelan Phy documented in this encounter* Leela Allen (Rn), RN - 10/23/2020 6:46 AM EST [facility] Supervising Physician: Corby Weber Diagnosis: PCI w/stent Phase: 2 Monitor: Yes Session Number: 20 Today's exercise session was comprised of a warm-up, aerobic conditioning phase, aerobic cool-down,and free weight resistance training. Patient tolerated prescribed exercise workload. Tele SR-ST with PVC's. Vitals WNL for patient. No chest discomfort. No medication changes. This is a hospital based cardiac rehab program. Patient working towards exercise goals by increasing exercise duration. Patient working towards education goal by attending education sessions in cardiac rehabilitation. Patient has verbalized understanding of diaphragmatic breathing education topic and the relation to disease managment. Patient's Daily Exercise Log will be scanned into [employer] once it is completed. These can be viewed bygoing under the Scanned Documents tab and looking for documents labeled Cardiac Rehabilitation. Daily Exercise Logs contain exercise data such as, but not limited to modality, intensity, durationand frequency of exercise, along with vital signs pre-, during, and post-exercise. Refer to patient's paper medical record for ECG rhythm strips, physician prescribed Individualized Treatment Plan, and education sessions covered. Leela Allen RN documented in this encounter* Rock Castelan (Ex Phys) - 10/25/2020 6:25 AM EST [facility] Supervising Physician: Corby Weber Diagnosis: PCI w/stent Phase: 2 Monitor: Yes Session Number: 21 Today's exercise session was comprised of a warm-up, aerobic conditioning phase, aerobic cool-down,and free weight resistance training. Patient tolerated prescribed exercise workload. Tele SR without ectopic beats. Vitals WNL for patient. No chest discomfort. No medication changes. This is a hospital based cardiac rehab program. Patient working towards exercise goals by increasing exercise intensity. Patient working towards education goal by attending education sessions in cardiac rehabilitation. Patient has verbalized understanding of pulse taking education topic and the relation to disease managment. Patient's Daily Exercise Log will be scanned into [employer] once it is completed. These can be viewed bygoing under the Scanned Documents tab and looking for documents labeled Cardiac Rehabilitation. Daily Exercise Logs contain exercise data such as, but not limited to modality, intensity, durationand frequency of exercise, along with vital signs pre-, during, and post-exercise. Refer to patient's paper medical record for ECG rhythm strips, physician prescribed Individualized Treatment Plan, and education sessions covered. Abelardo Downing documented in this encounter* Jessica Meek (Ex Phys) - 10/27/2020 6:41 AM EST [facility] Supervising Physician: Corby Weber Diagnosis: PCI w/stent Phase: 2 Monitor: Yes Session Number: 22 Today's exercise session was comprised of a warm-up, aerobic conditioning phase, aerobic cool-down,and free weight resistance training. Patient tolerated prescribed exercise workload. Tele SR-ST without ectopic beats. Vitals WNL for patient. No chest discomfort. No medication changes. This is a hospital based cardiac rehab program. Patient working towards exercise goals by maintaining exercise intensity and duration. Patient working towards education goal by attending education sessions in cardiac rehabilitation. Patient has verbalized understanding of Advanced Directives education topic and the relation to disease managment. Patient's Daily Exercise Log will be scanned into [employer] once it is completed. These can be viewed bygoing under the Scanned Documents tab and looking for documents labeled Cardiac Rehabilitation. Daily Exercise Logs contain exercise data such as, but not limited to modality, intensity, durationand frequency of exercise, along with vital signs pre-, during, and post-exercise. Refer to patient's paper medical record for ECG rhythm strips, physician prescribed Individualized Treatment Plan, and education sessions covered. Abelardo Ash documented in this encounter* Rock Castelan (Abelardo Phys) - 11/01/2020 6:45 AM EST [facility] Supervising Physician: Ayden Jeff Diagnosis: PCI w/stent Phase: 2 Monitor: Yes Session Number: 24 Today's exercise session was comprised of a warm-up, aerobic conditioning phase, aerobic cool-down,and free weight resistance training. Patient tolerated prescribed exercise workload. Tele SR-ST with PVC's. Vitals WNL for patient. No chest discomfort. No medication changes. This is a hospital based cardiac rehab program. Patient working towards exercise goals by increasing exercise duration. Patient working towards education goal by attending education sessions in cardiac rehabilitation. Patient has verbalized understanding of general nutrition education topic and the relation to disease managment. Patient's Daily Exercise Log will be scanned into [employer] once it is completed. These can be viewed bygoing under the Scanned Documents tab and looking for documents labeled Cardiac Rehabilitation. Daily Exercise Logs contain exercise data such as, but not limited to modality, intensity, durationand frequency of exercise, along with vital signs pre-, during, and post-exercise. Refer to patient's paper medical record for ECG rhythm strips, physician prescribed Individualized Treatment Plan, and education sessions covered. Abelardo Downing documented in this encounter* Rock Castelan (Abelardo Phys) - 11/06/2020 6:25 AM EST [facility] Supervising Physician: Geoff Nobles Diagnosis: PCI w/stent Phase: 2 Monitor: Yes Session Number: 26 Today's exercise session was comprised of a warm-up, aerobic conditioning phase, aerobic cool-down,and free weight resistance training. Patient tolerated prescribed exercise workload. Tele SR-ST with PVC's. Vitals WNL for patient. No chest discomfort. No medication changes. This is a hospital based cardiac rehab program. Patient working towards exercise goals by increasing exercise duration. Patient working towards education goal by attending education sessions in cardiac rehabilitation. Patient has verbalized understanding of cholesterol education topic and the relation to disease managment. Patient's Daily Exercise Log will be scanned into [employer] once it is completed. These can be viewed bygoing under the Scanned Documents tab and looking for documents labeled Cardiac Rehabilitation. Daily Exercise Logs contain exercise data such as, but not limited to modality, intensity, durationand frequency of exercise, along with vital signs pre-, during, and post-exercise. Refer to patient's paper medical record for ECG rhythm strips, physician prescribed Individualized Treatment Plan, and education sessions covered. Abelardo Downing documented in this encounter* Jessica Meek (Abelardo Phys) - 11/08/2020 6:39 AM EST [facility] Supervising Physician: Geoff Nobles Diagnosis: PCI w/stent Phase: 2 Monitor: Yes Session Number: 27 Today's exercise session was comprised of a warm-up, aerobic conditioning phase, aerobic cool-down,and free weight resistance training. Patient tolerated prescribed exercise workload. Tele SR with PVC's. Vitals WNL for patient. No chest discomfort. No medication changes. This is a hospital based cardiac rehab program. Patient working towards exercise goals by maintaining exercise intensity and duration. Patient working towards education goal by attending education sessions in cardiac rehabilitation. Patient has verbalized understanding of [employer] education topic and the relation to disease managment. Patient's Daily Exercise Log will be scanned into [employer] once it is completed. These can be viewed bygoing under the Scanned Documents tab and looking for documents labeled Cardiac Rehabilitation. Daily Exercise Logs contain exercise data such as, but not limited to modality, intensity, durationand frequency of exercise, along with vital signs pre-, during, and post-exercise. Refer to patient's paper medical record for ECG rhythm strips, physician prescribed Individualized Treatment Plan, and education sessions covered. Abelardo Ash documented in this encounter* Jessica Meek (Ex Phys) - 11/13/2020 6:38 AM EST [facility] Supervising Physician: Dr. Vallecillo Diagnosis: PCI w/stent Phase: 2 Monitor: Yes Session Number: 29 Today's exercise session was comprised of a warm-up, aerobic conditioning phase, aerobic cool-down,and free weight resistance training. Patient tolerated prescribed exercise workload. Tele SR with PVC's. Vitals WNL for patient. No chest discomfort. No medication changes. This is a hospital based cardiac rehab program. Patient working towards exercise goals by maintaining exercise intensity and duration. Patient working towards education goal by attending education sessions in cardiac rehabilitation. Patient has verbalized understanding of Sugar, Fiber, NA+ and Caffeine education topic and the relation to diseasemanagment. Patient's Daily Exercise Log will be scanned into [employer] once it is completed. These can be viewed bygoing under the Scanned Documents tab and looking for documents labeled Cardiac Rehabilitation. Daily Exercise Logs contain exercise data such as, but not limited to modality, intensity, durationand frequency of exercise, along with vital signs pre-, during, and post-exercise. Refer to patient's paper medical record for ECG rhythm strips, physician prescribed Individualized Treatment Plan, and education sessions covered. Abelardo Ash documented in this encounter* Rock Castelan (Ex Phys) - 11/15/2020 6:39 AM EST Card[facility] Rehabilitation [facility] Supervising Physician: Dr. Vallecillo Diagnosis: PCI w/stent Phase: 2 Monitor: Yes Session Number: 30 Today's exercise session was comprised of a warm-up, aerobic conditioning phase, aerobic cool-down,and free weight resistance training. Patient tolerated prescribed exercise workload. Tele SR w/ PVC's. Vitals WNL for patient. No chest discomfort. No medication changes. This is a hospital based cardiac rehab program. Patient working towards exercise goals by sustaining exercise intensity and duration. Patient working towards education goal by attending education sessions in cardiac rehabilitation. Patient has verbalized understanding of risk factors education topic and the relation to disease managment. Patient's Daily Exercise Log will be scanned into [employer] once it is completed. These can be viewed bygoing under the Scanned Documents tab and looking for documents labeled Cardiac Rehabilitation. Daily Exercise Logs contain exercise data such as, but not limited to modality, intensity, durationand frequency of exercise, along with vital signs pre-, during, and post-exercise. Refer to patient's paper medical record for ECG rhythm strips, physician prescribed Individualized Treatment Plan, and education sessions covered. Abelardo Downing documented in this encounter* Rock Castelan) - 11/20/2020 6:24 AM EDT Cardiac Rehabilitation [facility] Supervising Physician: Stephen Elias Diagnosis: PCI w/stent Phase: 2 Monitor: Yes Session Number: 32 Today's exercise session was comprised of a warm-up, aerobic conditioning phase, aerobic cool-down,and free weight resistance training. Patient tolerated prescribed exercise workload. Tele SR w/ PVC's. Vitals WNL for patient. No chest discomfort. No medication changes. This is a hospital based cardiac rehab program. Patient working towards exercise goals by sustaining exercise intensity and duration. Patient working towards education goal by attending education sessions in cardiac rehabilitation. Patient has verbalized understanding of stress management education topic and the relation to disease managment. Patient's Daily Exercise Log will be scanned into [employer] once it is completed. These can be viewed bygoing under the Scanned Documents tab and looking for documents labeled Cardiac Rehabilitation. Daily Exercise Logs contain exercise data such as, but not limited to modality, intensity, durationand frequency of exercise, along with vital signs pre-, during, and post-exercise. Refer to patient's paper medical record for ECG rhythm strips, physician prescribed Individualized Treatment Plan, and education sessions covered. Rock A Massacci, Ex Phy documented in this encounter* Jessica Meek (Ex Phys) - 11/22/2020 6:37 AM EDT Cardiac Rehabilitation [facility] Based Program Supervising Physician: Stephen Elias Diagnosis: PCI w/stent Phase: 2 Monitor: Yes Session Number: 33 Today's exercise session was comprised of a warm-up, aerobic conditioning phase, aerobic cool-down,and free weight resistance training. Patient tolerated prescribed exercise workload. Tele SR with PVC's. Vitals WNL for patient. No chest discomfort. No medication changes. This is a hospital based cardiac rehab program. Patient working towards exercise goals by maintaining exercise intensity and duration. Patient working towards education goal by attending education sessions in cardiac rehabilitation. Patient has verbalized understanding of Emotions education topic and the relation to disease managment. Patient's Daily Exercise Log will be scanned into [employer] once it is completed. These can be viewed bygoing under the Scanned Documents tab and looking for documents labeled Cardiac Rehabilitation. Daily Exercise Logs contain exercise data such as, but not limited to modality, intensity, durationand frequency of exercise, along with vital signs pre-, during, and post-exercise. Refer to patient's paper medical record for ECG rhythm strips, physician prescribed Individualized Treatment Plan, and education sessions covered. Abelardo Ash documented in this encounter* Rock Castelan (Ex Phys) - 11/24/2020 6:34 AM EDT Cardiac Rehabilitation [facility] Based Program Supervising Physician: Stephen Elias Diagnosis: PCI w/stent Phase: 2 Monitor: Yes Session Number: 34 Today's exercise session was comprised of a warm-up, aerobic conditioning phase, aerobic cool-down,and free weight resistance training. Patient tolerated prescribed exercise workload. Tele SR with PVC's. Vitals WNL for patient. No chest discomfort. No medication changes. This is a hospital based cardiac rehab program. Patient working towards exercise goals by sustaining exercise intensity and duration. Patient working towards education goal by attending education sessions in cardiac rehabilitation. Patient has verbalized understanding of a day away from stress education topic and the relation to disease managment. Patient's Daily Exercise Log will be scanned into [employer] once it is completed. These can be viewed bygoing under the Scanned Documents tab and looking for documents labeled Cardiac Rehabilitation. Daily Exercise Logs contain exercise data such as, but not limited to modality, intensity, durationand frequency of exercise, along with vital signs pre-, during, and post-exercise. Refer to patient's paper medical record for ECG rhythm strips, physician prescribed Individualized Treatment Plan, and education sessions covered. Abelardo Downing documented in this encounter* Leela AllenRn)DAVID - 11/27/2020 6:59 AM EDT Images from the original note were not included. Cardiac Rehabilitation [facility] Program Supervising Physician: Corby Weber Diagnosis: PCI w/stent Phase: 2 Monitor: Yes Session Number: 35 Today's exercise session was comprised of a warm-up, aerobic conditioning phase, aerobic cool-down,and free weight resistance training. Patient tolerated prescribed exercise workload. Tele SR with ectopic beats. Vitals WNL for patient.No chest discomfort. No medication changes. This is a hospital based cardiac rehab program. Patient working towards exercise goals by sustaining exercise intensity and duration. Patient working towards education goal by attending education sessions in cardiac rehabilitation. Patient has verbalized understanding of exercise education topic and the relation to disease managment. Patient's Daily Exercise Log will be scanned into [employer] once it is completed. These can be viewed bygoing under the Scanned Documents tab and looking for documents labeled Cardiac Rehabilitation. Daily Exercise Logs contain exercise data such as, but not limited to modality, intensity, durationand frequency of exercise, along with vital signs pre-, during, and post-exercise. Refer to patient's paper medical record for ECG rhythm strips, physician prescribed Individualized Treatment Plan, and education sessions covered. Leela Allen RN documented in this encounter* Gaviota (Ex Phys) - 09/22/2020 6:41 AM EST Cardiac Rehabilitation [facility] Supervising Physician: Corby Weber Diagnosis: PCI w/stent Phase: 2 Monitor: Yes Session Number: 7 Today's exercise session was comprised of a warm-up, aerobic conditioning phase, aerobic cool-down,and free weight resistance training. Patient tolerated prescribed exercise workload. Tele SR without ectopic beats. Vitals WNL for patient. No chest discomfort. No medication changes. This is a hospital based cardiac rehab program. Patient working towards exercise goals by maintaining exercise intensity and duration. Patient working towards education goal by attending education sessions in cardiac rehabilitation. Patient has verbalized understanding of Sugar, Fiber, NA+, and Caffeine education topic and the relation to disease managment. Patient's Daily Exercise Log will be scanned into [employer] once it is completed. These can be viewed bygoing under the Scanned Documents tab and looking for documents labeled Cardiac Rehabilitation. Daily Exercise Logs contain exercise data such as, but not limited to modality, intensity, durationand frequency of exercise, along with vital signs pre-, during, and post-exercise. Refer to patient's paper medical record for ECG rhythm strips, physician prescribed Individualized Treatment Plan, and education sessions covered. Abelardo Ash documented in this encounter* Leela Allen (Rn), RN - 09/25/2020 6:32 AM EST Cardiac Rehabilitation [facility] Program Supervising Physician: Ayden Jeff Diagnosis: PCI w/stent Phase: 2 Monitor: Yes Session Number: 8 Today's exercise session was comprised of a warm-up, aerobic conditioning phase, aerobic cool-down,and free weight resistance training. Patient tolerated prescribed exercise workload. Tele SR without ectopic beats. Vitals WNL for patient. No chest discomfort. No medication changes. This is a hospital based cardiac rehab program. Patient working towards exercise goals by increasing exercise intensity and duration. Patient working towards education goal by attending education sessions in cardiac rehabilitation. Patient has verbalized understanding of risk factors education topic and the relation to disease managment. Patient's Daily Exercise Log will be scanned into [employer] once it is completed. These can be viewed bygoing under the Scanned Documents tab and looking for documents labeled Cardiac Rehabilitation. Daily Exercise Logs contain exercise data such as, but not limited to modality, intensity, durationand frequency of exercise, along with vital signs pre-, during, and post-exercise. Refer to patient's paper medical record for ECG rhythm strips, physician prescribed Individualized Treatment Plan, and education sessions covered. 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 If you are unable to fill your medications, please call your Air[employer] Traffic Controller immediately. The office number is located with your follow-up appointment information. Call your doctor if any redness or drainage from the wound site. DO NOT stop taking your medication unless instructed to do so by your doctor. Read the drug information material that were given to you and take medications as instructed by your doctor. New drugs may have been added to your medications, that will strengthen your heart and prevent re-stenosis of the coronary arteries. Drink 6 glasses of water (8 ounces each) over the next 24 hours. Water helps clear the dye from your body. No alcoholic beverages for 24 hours. It may interfere with healing. No exercise or sex for 5 days. Call 911 for chest pain, arm pain, nausea, neck pain, dizziness or unusual sweating AND your pain has not relieved with 2 doses of Nitroglycerin. Call your doctor if a lump at the puncture site enlarges or is larger than marble size. Call your doctor for numbness, tingling, or swelling of the fingers, hand or wrist. Call your doctor for increased area or bruising with discoloration extending into the arm. If bleeding occurs, hold pressure with your thumb against the puncture site and your finger againstthe back of the wrist for 10 minutes, if BLEEDING continues CALL 911. OK to shower. No tub baths, swimming pools or hot tub soaking for three days. Wash site daily with soap and water, dry gently. The healing wound should remain soft and dry. Keepsite clean and dry, no soaking of wrist for three days (no cleaning or dish washing). Remove band aid the day after procedure and leave open to air. No bending of affected wrist for 24 hours. DO NOT lift more than three pounds for 3-[address] for 24 hours. GIVE PCI PACKET (FROM [employer]) TO PATIENT Give Coronary Artery Discharge Booklet PLEASE CALL YOUR HEART DOCTOR IF YOU CANNOT GET YOUR MEDICATIONS. THE NUMBER IS LISTED WITH YOUR FOLLOW-UP APPOINTMENT. Procedure Sedation Instructions 1. If you have received sedation: you must have someone drive you home 2. You should not drive a car, operate machinery, drink alcohol or perform any activity that requires alertness for the rest of the day. The effects of the sedative should be gone by tomorrow. Blood work in 5-7 days, see orders * Attachments The following attachments cannot be sent through Care Everywhere. * clopidogrel (Greek) * pantoprazole (oral/injection) (Greek) documented in this encounter Summary Purpose Hospital Course Note Name: Yunior Lou te of : 1950 Date of Admission: 08/04/2020 Date of Discharge: 08/04/2020 Admitting physician: Dr. Torres Discharge Attending: Peggy Medley APRN-FRONT WORKER Primary Care Physician: Ga Millan DO Review of Systems: Review of Systems Constitutional: Negative for chills, diaphoresis and fever. HENT: Negative for nosebleeds. Eyes: Negative for visual disturbance. Respiratory: Negative for cough, shortness of breath and wheezing. Cardiovascular: Positive for chest pain (resolved). Negative for palpitations and leg swelling. Gastrointestinal: Negative for abdominal pain, blood in stool, constipation, diarrhea, nausea and vomiting. Genitourinary: Negative for hematuria. Musculoskeletal: Negative for myalgias. Skin: Negative for rash. Neurological: Negative for dizziness and syncope. Hematological: Does not bruise/bleed easily. Psychiatric/Behavioral: Negative for dysphoric mood and suicidal ideas. Denies Depress (more content not included)... Additional Source Comments Reason for Visit (unrecogniz ed section and content) Reason Comments Cardiac Rehab Initial Assessment Reason Comments Cardiac Rehab Reason Comments Cardiac Rehab 30 day assessment Reason Comments Cardiac Rehab 60 day assessment Reason Comments Follow-up New to provider, med check (unrecognized sect ion and content) No Status Records FoundNo Status Records FoundNo Status Records FoundNo Status Records Found INFORMATION SOURCE (unrecogn ized section and content) DATE CREATED AUTHOR AUTHOR'S ORGANIZ ATION 08/29/2020 [facility] DATE CREATED AUTHOR AUTHOR'S ORGANIZ ATION 11/30/2020 [facility] DATE CREATED AUTHOR AUTHOR'S ORGANIZ ATION 10/08/2023 [facility] Source Comments (unrecognize d section and content) In the event this informatio n is protected by the Federal Confidentiality of Alcohol and Drug Abuse Patient Records regulations: The Federal rules restrict any use of the information to criminally investigate or prosecute any alcohol or drug abuse patient.[facility] the event this information is protected by the Federal Confidentiality of Alcohol and Drug Abuse Patient Records regulations: The Federal rules restrict any use of the information to criminally investigate or prosecute any alcohol or drug abuse patient.[facility] the event this information is protected by the Federal Confidentiality of Alcohol and Drug Abuse Patient Records regulations: The Federal rules restrict any use of the information to criminally investigate or prosecute any alcohol or drug abuse patient.[facility] the event this information is protected by the Federal Confidentiality of Alcohol and Drug Abuse Patient Records regulations: The Federal rules restrict any use of the information to criminally investigate or prosecute any alcohol or drug abuse patient.[facility] HospitalIn the event this information is protected by the Federal Confidentiality of Alcohol and Drug Abuse Patient Records regulations: The Federal rules restrict any use of the information to criminally investigate or prosecute any alcohol or drug abuse patient.[facility] HospitalIn the event this information is protected by the Federal Confidentiality of Alcohol and Drug Abuse Patient Records regulations: The Federal rules restrict any use of the information to criminally investigate or prosecute any alcohol or drug abuse patient.[facility] HospitalIn the event this information is protected by the Federal Confidentiality of Alcohol and Drug Abuse Patient Records regulations: The Federal rules restrict any use of the information to criminally investigate or prosecute any alcohol or drug abuse patient.[facility]In the event this information is protected by the Federal Confidentiality of Alcohol and Drug Abuse Patient Records regulations: The Federal rules restrict any use of the information to criminally investigate or prosecute any alcohol or drug abuse patient.[facility]In the event this information is protected by the Federal Confidentiality of Alcohol and Drug Abuse Patient Records regulations: The Federal rules restrict any use of the information to criminally investigate or prosecute any alcohol or drug abuse patient.[facility]In the event this information is protected by the Federal Confidentiality of Alcohol and Drug Abuse Patient Records regulations: The Federal rules restrict any use of the information to criminally investigate or prosecute any alcohol or drug abuse patient.[facility]In the event this information is protected by the Federal Confidentiality of Alcohol and Drug Abuse Patient Records regulations: The Federal rules restrict any use of the information to criminally investigate or prosecute any alcohol or drug abuse patient.[facility] HospitalIn the event this information is protected by the Federal Confidentiality of Alcohol and Drug Abuse Patient Records regulations: The Federal rules restrict any use of the information to criminally investigate or prosecute any alcohol or drug abuse patient.[facility] HospitalIn the event this information is protected by the Federal Confidentiality of Alcohol and Drug Abuse Patient Records regulations: The Federal rules restrict any use of the information to criminally investigate or prosecute any alcohol or drug abuse patient.[facility] HospitalIn the event this information is protected by the Federal Confidentiality of Alcohol and Drug Abuse Patient Records regulations: The Federal rules restrict any use of the information to criminally investigate or prosecute any alcohol or drug abuse patient.[facility] HospitalIn the event this information is protected by the Federal Confidentiality of Alcohol and Drug Abuse Patient Records regulations: The Federal rules restrict any use of the information to criminally investigate or prosecute any alcohol or drug abuse patient.[facility] HospitalIn the event this information is protected by the Federal Confidentiality of Alcohol and Drug Abuse Patient Records regulations: The Federal rules restrict any use of the information to criminally investigate or prosecute any alcohol or drug abuse patient.[facility]In the event this information is protected by the Federal Confidentiality of Alcohol and Drug Abuse Patient Records regulations: The Federal rules restrict any use of the information to criminally investigate or prosecute any alcohol or drug abuse patient.[facility] HospitalIn the event this information is protected by the Federal Confidentiality of Alcohol and Drug Abuse Patient Records regulations: The Federal rules restrict any use of the information to criminally investigate or prosecute any alcohol or drug abuse patient.[facility] HospitalIn the event this information is protected by the Federal Confidentiality of Alcohol and Drug Abuse Patient Records regulations: The Federal rules restrict any use of the information to criminally investigate or prosecute any alcohol or drug abuse patient.[facility] HospitalIn the event this information is protected by the Federal Confidentiality of Alcohol and Drug Abuse Patient Records regulations: The Federal rules restrict any use of the information to criminally investigate or prosecute any alcohol or drug abuse patient.[facility] HospitalIn the event this information is protected by the Federal Confidentiality of Alcohol and Drug Abuse Patient Records regulations: The Federal rules restrict any use of the information to criminally investigate or prosecute any alcohol or drug abuse patient.[facility] HospitalIn the event this information is protected by the Federal Confidentiality of Alcohol and Drug Abuse Patient Records regulations: The Federal rules restrict any use of the information to criminally investigate or prosecute any alcohol or drug abuse patient.[facility] HospitalIn the event this information is protected by the Federal Confidentiality of Alcohol and Drug Abuse Patient Records regulations: The Federal rules restrict any use of the information to criminally investigate or prosecute any alcohol or drug abuse patient.[facility] HospitalIn the event this information is protected by the Federal Confidentiality of Alcohol and Drug Abuse Patient Records regulations: The Federal rules restrict any use of the information to criminally investigate or prosecute any alcohol or drug abuse patient.[facility] HospitalIn the event this information is protected by the Federal Confidentiality of Alcohol and Drug Abuse Patient Records regulations: The Federal rules restrict any use of the information to criminally investigate or prosecute any alcohol or drug abuse patient.[facility] HospitalIn the event this information is protected by the Federal Confidentiality of Alcohol and Drug Abuse Patient Records regulations: The Federal rules restrict any use of the information to criminally investigate or prosecute any alcohol or drug abuse patient.[facility] HospitalIn the event this information is protected by the Federal Confidentiality of Alcohol and Drug Abuse Patient Records regulations: The Federal rules restrict any use of the information to criminally investigate or prosecute any alcohol or drug abuse patient.[facility]In the event this information is protected by the Federal Confidentiality of Alcohol and Drug Abuse Patient Records regulations: The Federal rules restrict any use of the information to criminally investigate or prosecute any alcohol or drug abuse patient.[facility] HospitalIn the event this information is protected by the Federal Confidentiality of Alcohol and Drug Abuse Patient Records regulations: The Federal rules restrict any use of the information to criminally investigate or prosecute any alcohol or drug abuse patient.[facility] HospitalIn the event this information is protected by the Federal Confidentiality of Alcohol and Drug Abuse Patient Records regulations: The Federal rules restrict any use of the information to criminally investigate or prosecute any alcohol or drug abuse patient.[facility] HospitalIn the event this information is protected by the Federal Confidentiality of Alcohol and Drug Abuse Patient Records regulations: The Federal rules restrict any use of the information to criminally investigate or prosecute any alcohol or drug abuse patient.[facility] HospitalIn the event this information is protected by the Federal Confidentiality of Alcohol and Drug Abuse Patient Records regulations: The Federal rules restrict any use of the information to criminally investigate or prosecute any alcohol or drug abuse patient.[facility] Care Teams (unrecognized sec tion and content) FOR RECORDS PERTAINING TO PATIENTS WHO ARE OR HAVE BEEN ENROLLED IN A CHEMICAL DEPENDENCY/SUBSTANCEABUSE PROGRAM, SOME INFORMATION MAY BE OMITTED. This clinical summary was aggregated from multiple sources. Caution should be exercised in using it in the provision of clinical care. This summary normalizes information from multiple sources, and as a consequence, information in this document may materially change the coding, format and clinical context of patient data. In addition, data may be omitted in some cases. CLINICAL DECISIONS SHOULD BE BASED ON THE PRIMARY CLINICAL RECORDS. [facility] [employer] [facility]. provides no warranty or guarantee of the accuracy or completeness of information in this document.
[2023-10-28 08:59] LABS: PSA,Total - Annual Screen 2.82 ng/mL (0.00-4.00)
== END | disposition home or self-care (01) ==
LOC: PAVLAB 08:09
PROVIDERS: Referring Provider Urology; Visit Provider Urology
DX: Z12.5 Encounter for screening for malignant neoplasm of prostate (principal)
CPT/HCPCS: 36415; 84153; G0103

== ENCOUNTER → 2024-11-04 | Outpatient (CLI) | payer MEDICARE, OTHER, SELFPAY ==
[2024-11-04 11:18] LABS: PSA,Total - Annual Screen 2.87 ng/mL (0.02-4.00)
== END | disposition home or self-care (01) ==
LOC: PAVLAB 10:19
PROVIDERS: Referring Provider Nurse Practitioner; Visit Provider Nurse Practitioner
DX: Z12.5 Encounter for screening for malignant neoplasm of prostate (principal)
CPT/HCPCS: 36415; 84153; G0103